=== PATIENT | male | born 1970 | race African-American/Black ===

== ENCOUNTER 2019-10-17 07:00 | Inpatient (IN) | payer SELFPAY ==
[2019-10-17 07:51] LABS: ABSOLUTE EOSINOPHILS # (AUTO) 0.4 10^3/uL (0.0-0.6); ABSOLUTE MONOCYTES (AUTO) 0.7 10^3/uL (0.1-1.4); ABSOLUTE NEUT (AUTO) 2.9 10^3/uL (1.7-8.2); BASOPHILS % (AUTO) 0.7 % (0-2); HEMATOCRIT 39.9 % (37.9-51.0); HEMOGLOBIN 13.2 g/dL (13.5-17.0); LYMPHOCYTES % (AUTO) 42.4 % (13-45); MEAN CORPUSCULAR HEMOGLOBIN 28.6 pg (27.0-33.4); MEAN CORPUSCULAR HGB CONC 33.1 g/dL (32.0-36.0); MEAN CORPUSCULAR VOLUME 86 fl (80-97); MONOCYTES % (AUTO) 9.6 % (3-13); PLATELET COUNT 219 10^3/uL (150-450); RED BLOOD COUNT 4.62 10^6/uL (4.35-5.55); SEGMENTED NEUTROPHILS % (AUTO) 41.3 % (42-78); TOTAL CELLS COUNTED % (AUTO) 100 %; WHITE BLOOD COUNT 7.1 10^3/uL (4.0-10.5)
[2019-10-17] MEDS ORDERED: DILTIAZEM HCL INJ 25 MG/5 ML VIAL IV ONE (07:52)
[2019-10-17 07:55] LABS: ALBUMIN 3.8 g/dL (3.5-5.0); ALKALINE PHOSPHATASE 72 U/L (38-126); ANION GAP 9 (5-19); ASPARTATE AMINO TRANSFERASE 51 U/L (17-59); BILIRUBIN,DIRECT 0.4 mg/dL (0.0-0.4); BILIRUBIN,TOTAL 0.6 mg/dL (0.2-1.3); BLOOD UREA NITROGEN 13 mg/dL (7-20); CALCIUM 8.5 mg/dL (8.4-10.2); CARBON DIOXIDE 26 mmol/L (22-30); CHLORIDE 104 mmol/L (98-107); CREATINE KINASE 411 U/L (55-170); GLUCOSE 112 mg/dL (75-110); TOTAL PROTEIN 7.3 g/dL (6.3-8.2)
[2019-10-17] MEDS ORDERED: DILTIAZEM HCL/D5W 125 MG/125 ML RTUINJ IV PRN (07:56)
[2019-10-17 08:06] LABS: CREATINE KINASE MB 2.06 ng/mL (<4.55); TROPONIN I < 0.012 ng/mL
--- NOTE | 2019-10-17 08:23 | RADIOLOGY REPORT (SQ) ---
EXAM DESCRIPTION: CHEST SINGLE VIEW COMPLETED DATE/TIME: 10/17/2019 7:45 am REASON FOR STUDY: chest pain COMPARISON: None. EXAM PARAMETERS: NUMBER OF VIEWS: One view. TECHNIQUE: Single frontal radiographic view of the chest acquired. RADIATION DOSE: NA LIMITATIONS: None. FINDINGS: LUNGS AND PLEURA: Minimal parenchymal opacity at the right base. Left lung is clear. MEDIASTINUM AND HILAR STRUCTURES: No masses. Contour normal. HEART AND VASCULAR STRUCTURES: Heart enlarged. Mild vascular congestion. BONES: No acute findings. HARDWARE: None in the chest. OTHER: No other significant finding. IMPRESSION: Mild vascular congestion. Possible superimposed right lower lobe pneumonia. TECHNICAL DOCUMENTATION: JOB ID: [id number] [employer]- All Rights Reserved Reading location - IP/workstation name: [email or web address]
[2019-10-17] MEDS ORDERED: FUROSEMIDE INJ/PF 40 MG/4 ML SDV IV ONE (09:18)
[2019-10-17] MEDS ORDERED: MORPHINE SULFATE 10 MG/ML INJ IV ONE (09:19)
[2019-10-17] MEDS ORDERED: NITROGLYCERIN 2% OINTMENT 1 GM PACKET TP ONE (09:20)
[2019-10-17 09:24] LABS: INTERNATIONAL RATION (INR) 1.13; PROTHROMBIN TIME 14.5 SEC (11.4-15.4)
[2019-10-17 09:25] LABS: PARTIAL THROMBOPLASTIN TIME 29.8 SEC (23.5-35.8)
[2019-10-17 09:27] LABS: APPEARANCE,URINE CLEAR; BILIRUBIN,URINE NEGATIVE (NEGATIVE); COLOR,URINE YELLOW; GLUCOSE, URINE NEGATIVE (NEGATIVE); KETONES,URINE NEGATIVE (NEGATIVE); LEUKOCYTE ESTERASE,URINE NEGATIVE (NEGATIVE); NITRITE,URINE NEGATIVE (NEGATIVE); PROTEIN,URINE >=500 mg/dL (NEGATIVE)
[2019-10-17 09:40] LABS: URINE AMPHETAMINES SCREEN NEGATIVE; URINE BARBITURATES SCREEN NEGATIVE; URINE BENZODIAZEPINES SCREEN NEGATIVE; URINE COCAINE SCREEN NEGATIVE; URINE MARIJUANA (THC) SCREEN NEGATIVE; URINE METHADONE SCREEN NEGATIVE; URINE PHENCYCLIDINE SCREEN NEGATIVE
--- NOTE | 2019-10-17 10:53 | ER Document Report ---
Entered by JEFF DUBOSE SCRIBE 10/17/19 0750 Acting as scribe for:HAKAN CAMPBELL MD ED Cardiac - General Chief Complaint: Chest Pain Stated Complaint: CHEST PAIN Time Seen by Provider: 10/17/19 07:40 Information source: Patient Notes: This 49 year old male patient presents to the emergency department today with palpitations. Patient states he has had pressure and pain in his chest since the previous night and cannot sleep supine due to shortness of breath. Patient states he felt hot this morning, with a swollen abdomen and feet. Patient states he has had shortness of breath and a cough with white frothy sputum. Of note, patient mentions non-compliance with his medications stating that he "didn't like the way it made him feel". - Related Data Allergies/Adverse Reactions: No Known Allergies Allergy (Verified 10/17/19 11:27) Past Medical History - General Information source: Patient - Social History Smoking Status: Current Every Day Smoker Cigarette use (# per day): Yes Frequency of alcohol use: None Drug Abuse: None Lives with: Family Family History: Reviewed & Not Pertinent Patient has suicidal ideation: No Patient has homicidal ideation: No - Past Medical History Cardiac Medical History: Reports: Hx Hypertension Review of Systems - Review of Systems Constitutional: See HPI, Fever - This morning. EENT: No symptoms reported Cardiovascular: See HPI, Chest pain, Other - Irregularly irregular heart rate. Respiratory: See HPI, Cough, Short of breath, Sputum Gastrointestinal: See HPI Genitourinary: No symptoms reported Male Genitourinary: No symptoms reported Musculoskeletal: See HPI, Other - Feet swelling. Skin: No symptoms reported Hematologic/Lymphatic: No symptoms reported Neurological/Psychological: No symptoms reported -: Yes All other systems reviewed and negative Physical Exam - Vital signs Vitals: Resp Pulse Ox 27 H 90 L 10/17/19 07:02 10/17/19 07:02 - General General appearance: Appears well, Alert In distress: None - HEENT Head: Normocephalic, Atraumatic Eyes: Normal Pupils: PERRL - Respiratory Respiratory status: Other - Shortness of breath. Chest status: Other - Minimal chest pain. Breath sounds: Rales - Left base. - Cardiovascular Rhythm: Irregularly irregular - A-fib with rvr, Tachycardia - Abdominal Distension: Distended Bowel sounds: Normal Tenderness: Nontender Organomegaly: No organomegaly - Extremities General upper extremity: Normal inspection. No: Edema General lower extremity: Edema - Edema 2+ bilaterally - Neurological Neuro grossly intact: Yes Cognition: Normal Orientation: AAOx4 Speech: Normal - Psychological Associated symptoms: Normal affect, Normal mood - Skin Skin Temperature: Warm Skin Moisture: Dry Skin Color: Normal Course - Re-evaluation Re-evalutation: 10/17/19 10:47 Patient is sitting up upright in room resting comfortably heart rate is now variable between 81-1 03 95% sat on nasal cannula O2 with a blood pressure 132/88 patient is speaking with a stronger voice without any air hunger at this time. Denies any chest pain at this time. - Vital Signs Vital signs: Temp Pulse Resp BP Pulse Ox 97.4 F 76 18 150/108 H 99 10/17/19 11:21 10/17/19 14:04 10/17/19 14:04 10/17/19 13:17 10/17/19 14:10 - Laboratory Result Diagrams: 10/17/19 07:07 10/17/19 07:07 Laboratory results interpreted by me: 10/17/19 10/17/19 10/17/19 07:07 07:07 07:07 Hgb 13.2 L RDW 15.0 H Seg Neutrophils % 41.3 L Glucose 112 H Creatine Kinase 411 H NT-Pro-B Natriuret Pep 1230 H Urine Protein Urine Urobilinogen Urine Ascorbic Acid 10/17/19 09:03 Hgb RDW Seg Neutrophils % Glucose Creatine Kinase NT-Pro-B Natriuret Pep Urine Protein >=500 H Urine Urobilinogen 2.0 H Urine Ascorbic Acid 20 H - Diagnostic Test Radiology reviewed: Image reviewed, Reports reviewed Radiology results interpreted by me: 10/17/19 10:50 Radiology interpretation shows cardiomegaly congestive heart failure state and questionable infiltrate in the right base. - EKG Interpretation by Me Additional EKG results interpreted by me: 10/17/19 10:49 EKG done at 7:39 AM shows atrial fibrillation with a variable rate 78-1 33 rapid ventricular response. Multiform ventricular PVCs borderline T wave abnormalities in the inferior leads no other acute ST-T wave changes. 10/17/19 11:22 Second EKG done at 43 again atrial fibrillation with rapid ventricular response ventricular rate between 62 and 104 multiple PVCs supraventricular and ventricular premature complexes. Borderline T wave abnormalities in the inferior leads no other acute ST-T wave changes. Critical Care Note - Critical Care Note Total time excluding time spent on procedures (mins): 49 Discharge - Discharge Clinical Impression: Atrial fibrillation with rapid ventricular response, Accelerated hypertension, Congestive heart failure due to hypertension Chest pain Qualifiers: Chest pain type: chest pain on breathing Qualified Code(s): R07.1 - Chest pain on breathing; R07.81 - Pleurodynia Condition: Fair Disposition: ADMITTED INPATIENT Admitting Provider: Kayley (Hospitalist) Unit Admitted: IMCU I personally performed the services described in the documentation, reviewed and edited the documentation which was dictated to the scribe in my presence, and it accurately records my words and actions.
[2019-10-17] MEDS ORDERED: PROMETHAZINE HCL INJ 25 MG/1 ML VIAL IV PRN (11:15)
[2019-10-17] MEDS ORDERED: MAG HYDROX/AL HYDROX/SIMETH SUSP 30 ML UDCUP PO PRN (11:15)
[2019-10-17] MEDS ORDERED: ONDANSETRON HCL INJ/PF 4 MG/2 ML SDV IV PRN (11:15)
[2019-10-17] MEDS ORDERED: ACETAMINOPHEN 325 MG TABLET PO PRN (11:15)
[2019-10-17] MEDS ORDERED: HYDRALAZINE HCL INJ/PF 20 MG/1 ML SDV IV PRN (12:32)
[2019-10-17] MEDS: LOSARTAN POTASSIUM 50 MG TABLET PO SCH (12:55)
--- NOTE | 2019-10-17 13:05 | PDOC H&P ---
History of Present Illness Admission Date/PCP: 10/17/19 11:35 Patient complains of: Shortness of breath History of Present Illness: EB ZAMUDIO is a 49 year old male with a past medical history of CHF, hypertension, tobacco dependence with continuous use, and obesity with medication noncompliance who presented to the emergency department today with a complaint of shortness of breath and increased leg edema. Patient reports that it has been several years since he is seen a physician but does recall diagnosis of heart failure. He cannot recall the last time he has had an echocardiogram for what his LVEF is. Evaluation in emergency department revealed Hypertension, unremarkable CBC, coags, chemistry with 2- troponins but a proBNP of 1200, normal TSH, urinalysis positive for protein, negative UDS and serum alcohol. EKG revealed atrial fibrillation with RVR; heart rate in the 140s. Chest x-ray started mild pulmonary edema with a possible right lower lobe pneumonia. Patient was provided IV furosemide and started on a diltiazem drip with subsequent rate control and underlying a flutter. He is referred to the hospitalist service for admission and management of the above-stated complaints and findings. Past Medical History Cardiac Medical History: Reports: Congestive Heart Failure, Hypertension Pulmonary Medical History: Reports: None EENT Medical History: Reports: None Neurological Medical History: Reports: None Endocrine Medical History: Reports: Obesity Renal/ Medical History: Reports: None Malignancy Medical History: Reports: None GI Medical History: Reports: None Musculoskeltal Medical History: Reports: None Skin Medical History: Reports: None Psychiatric Medical History: Reports: Tobacco Dependency Traumatic Medical History: Reports: None Hematology: Reports: None Infectious Medical History: Reports: None Past Surgical History Past Surgical History: Reports: Orthopedic Surgery - Right hand Social History Information Source: Patient Lives with: Family Smoking Status: Current Every Day Smoker Cigarettes Packs Per Day: 1 Frequency of Alcohol Use: Social Hx Recreational Drug Use: No Hx Prescription Drug Abuse: No - Advance Directive Resuscitation Status: Full Code Family History Family History: CAD, Hyperlipidemia, Hypertension Parental Family History Reviewed: Yes Children Family History Reviewed: Yes Sibling(s) Family History Reviewed.: Yes Medication/Allergy Allergies/Adverse Reactions: No Known Allergies Allergy (Verified 10/17/19 11:27) Review of Systems Constitutional: ABSENT: chills, fever(s), headache(s), weight gain, weight loss Eyes: ABSENT: visual disturbances Ears: ABSENT: hearing changes Cardiovascular: PRESENT: edema, orthropnea. ABSENT: chest pain, dyspnea on exertion, palpitations Respiratory: PRESENT: dyspnea. ABSENT: cough, hemoptysis Gastrointestinal: ABSENT: abdominal pain, constipation, diarrhea, hematemesis, hematochezia, nausea, vomiting Genitourinary: ABSENT: dysuria, hematuria Musculoskeletal: ABSENT: joint swelling Integumentary: ABSENT: rash, wounds Neurological: ABSENT: abnormal gait, abnormal speech, confusion, dizziness, focal weakness, syncope Psychiatric: ABSENT: anxiety, depression, homidical ideation, suicidal ideation Endocrine: ABSENT: cold intolerance, heat intolerance, polydipsia, polyuria Hematologic/Lymphatic: ABSENT: easy bleeding, easy bruising Physical Exam Vital Signs: Temp Pulse Resp BP Pulse Ox 97.4 F 17 150/104 H 98 10/17/19 11:21 10/17/19 11:31 10/17/19 12:17 10/17/19 12:17 Intake & Output 10/16/19 10/17/19 10/18/19 06:59 06:59 06:59 Intake Total 12 Output Total 520 Balance -508 Weight 104.326 kg General appearance: PRESENT: no acute distress, cooperative, obese, well- developed, well-nourished Head exam: PRESENT: atraumatic, normocephalic Eye exam: PRESENT: conjunctiva pink, EOMI, PERRLA. ABSENT: scleral icterus Ear exam: PRESENT: normal external ear exam Mouth exam: PRESENT: moist, tongue midline Neck exam: ABSENT: carotid bruit, JVD, lymphadenopathy, thyromegaly Respiratory exam: PRESENT: clear to auscultation conchita, symmetrical, unlabored. ABSENT: rales, rhonchi, wheezes Cardiovascular exam: PRESENT: irregular rhythm, +S1, +S2. ABSENT: diastolic murmur, rubs, systolic murmur Pulses: PRESENT: normal dorsalis pedis pul Vascular exam: PRESENT: normal capillary refill Rectal exam: PRESENT: deferred Extremities exam: PRESENT: full ROM, +1 edema - BLE. ABSENT: calf tenderness, clubbing, pedal edema Neurological exam: PRESENT: alert, awake, oriented to person, oriented to place, oriented to time, oriented to situation, CN II-XII grossly intact. ABSENT: motor sensory deficit Psychiatric exam: PRESENT: appropriate affect, normal mood. ABSENT: homicidal ideation, suicidal ideation Skin exam: PRESENT: dry, intact, warm. ABSENT: cyanosis, rash Results Laboratory Results: 10/17/19 07:07 10/17/19 07:07 10/17/19 10/17/19 10/17/19 07:07 07:07 07:07 WBC 7.1 RBC 4.62 Hgb 13.2 L Hct 39.9 MCV 86 MCH 28.6 MCHC 33.1 RDW 15.0 H Plt Count 219 Seg Neutrophils % 41.3 L Sodium 139.1 Potassium 4.0 Chloride 104 Carbon Dioxide 26 Anion Gap 9 BUN 13 Creatinine 0.77 Est GFR ( Amer) > 60 Glucose 112 H Calcium 8.5 Total Bilirubin 0.6 AST 51 Alkaline Phosphatase 72 Total Protein 7.3 Albumin 3.8 TSH 1.74 Urine Color Urine Appearance Urine pH Ur Specific [place] Urine Protein Urine Glucose (UA) Urine Ketones Urine Blood Urine Nitrite Ur Leukocyte Esterase Urine WBC (Auto) Urine RBC (Auto) 10/17/19 09:03 WBC RBC Hgb Hct MCV MCH MCHC RDW Plt Count Seg Neutrophils % Sodium Potassium Chloride Carbon Dioxide Anion Gap BUN Creatinine Est GFR ( Amer) Glucose Calcium Total Bilirubin AST Alkaline Phosphatase Total Protein Albumin TSH Urine Color YELLOW Urine Appearance CLEAR Urine pH 5.0 Ur Specific [place] 1.020 Urine Protein >=500 H Urine Glucose (UA) NEGATIVE Urine Ketones NEGATIVE Urine Blood NEGATIVE Urine Nitrite NEGATIVE Ur Leukocyte Esterase NEGATIVE Urine WBC (Auto) 2 Urine RBC (Auto) 2 10/17/19 10/17/19 10/17/19 07:07 07:07 07:07 Creatine Kinase 411 H CK-MB (CK-2) 2.06 Troponin I < 0.012 NT-Pro-B Natriuret Pep 1230 H 10/17/19 10:34 Creatine Kinase CK-MB (CK-2) Troponin I < 0.012 NT-Pro-B Natriuret Pep Impressions: Chest X-Ray 10/17/19 07:34 IMPRESSION: Mild vascular congestion. Possible superimposed right lower lobe pneumonia. Assessment and Plan - Diagnosis (1) Atrial fibrillation with rapid ventricular response Is this a current diagnosis for this admission?: Yes Plan: TSH nml The patient is noted to IMCU on continuous cardiac telemetry. He is placed on a diltiazem drip. We will start daily aspirin therapy. [id number] VASc Score of 2; will not take chronic anticoagulation at this time. Cardiac diet. (2) CHF (congestive heart failure) Qualifiers: Heart failure chronicity: acute on chronic Is this a current diagnosis for this admission?: Yes Plan: Patient reports 5-year history of CHF; does admit to medication and dietary noncompliance. Recall the last time he had an echocardiogram. Chest x-ray reveals pulmonary edema. proBNP elevated 1200. Patient noted to have dependent edema. We will obtain echocardiogram. Continue diuresis with furosemide. Obtain appropriate rate control. Start daily aspirin and statin therapy. Cardiac diet. Daily weights (3) Hypertension Is this a current diagnosis for this admission?: Yes Plan: Currently on diltiazem drip for atrial fibrillation. Started losartan 50 mg daily. IV Hydralazine as needed for blood pressure control. Consider beta-deep due to patient's CHF. Cardiac diet. (4) Tobacco dependence Is this a current diagnosis for this admission?: Yes Plan: Smoking cessation encouraged. Nicotine replacement therapies provided. (5) Obesity (BMI 30-39.9) Is this a current diagnosis for this admission?: Yes Plan: Lifestyle and dietary modification encouraged. BMI 35.0 Cardiac diet. - Time Time Spent with patient: 25-34 minutes Medications reviewed and adjusted accordingly: Yes Anticipated discharge: Home Within: within 48 hours
[2019-10-17] MEDS: DILTIAZEM HCL/D5W 125 MG/125 ML RTUINJ IV PRN ×2 (13:58→17:49)
[2019-10-17] MEDS: NICOTINE 21 MG/24 HR PATCH.TD24 TD SCH (13:59)
[2019-10-17] MEDS: LEVALBUTEROL HCL NEB 1.25 MG/3 ML AMPUL NEB PRN (14:04)
[2019-10-17] MEDS: HEPARIN SOD (PORCINE) 5,000 UNIT/ML 1 ML VIAL SUBCUT SCH ×2 (16:01→22:08)
[2019-10-17] MEDS: FUROSEMIDE 20 MG TABLET PO SCH (17:49)
[2019-10-17] MEDS: FAMOTIDINE 20 MG TABLET PO SCH (22:08)
--- NOTE | 2019-10-17 23:44 | EKG REPORT ---
SEVERITY:- ABNORMAL ECG - ATRIAL FIBRILLATION, V-RATE 78-133 MULTIFORM VENTRICULAR PREMATURE COMPLEXES BORDERLINE T ABNORMALITIES, INFERIOR LEADS : Confirmed by: Adam Rodriguez 17-Oct-2019 23:44:20
--- NOTE | 2019-10-17 23:44 | EKG REPORT ---
SEVERITY:- ABNORMAL ECG - ATRIAL FIBRILLATION, V-RATE 62-104 BORDERLINE T ABNORMALITIES, INFERIOR LEADS : Confirmed by: Adam Rodriguez 17-Oct-2019 23:44:12
[2019-10-18] MEDS: HEPARIN SOD (PORCINE) 5,000 UNIT/ML 1 ML VIAL SUBCUT SCH ×3 (05:05→21:18)
[2019-10-18] MEDS: DILTIAZEM HCL/D5W 125 MG/125 ML RTUINJ IV PRN (05:30)
[2019-10-18 05:57] LABS: HEMOGLOBIN 12.8 g/dL (13.5-17.0); MEAN CORPUSCULAR HEMOGLOBIN 28.6 pg (27.0-33.4); MEAN CORPUSCULAR HGB CONC 32.9 g/dL (32.0-36.0); MEAN CORPUSCULAR VOLUME 87 fl (80-97); PLATELET COUNT 223 10^3/uL (150-450); RED BLOOD COUNT 4.49 10^6/uL (4.35-5.55); RED CELL DISTRIBUTION WIDTH 14.6 % (11.5-14.0); WHITE BLOOD COUNT 6.2 10^3/uL (4.0-10.5)
[2019-10-18 06:19] LABS: ANION GAP 5 (5-19); BLOOD UREA NITROGEN 11 mg/dL (7-20); CALCIUM 8.6 mg/dL (8.4-10.2); CARBON DIOXIDE 29 mmol/L (22-30); CHLORIDE 105 mmol/L (98-107); CHOLESTEROL 131.23 mg/dL (0-200); GLUCOSE 109 mg/dL (75-110); POTASSIUM 4.5 mmol/L (3.6-5.0); TRIGLYCERIDES 107 mg/dL (<150)
[2019-10-18 06:29] LABS: DIRECT LDL 99 mg/dL (<100)
[2019-10-18] MEDS: METOPROLOL SUCCINATE 25 MG TAB.SR.24H PO SCH ×2 (10:45→21:18)
[2019-10-18] MEDS: FAMOTIDINE 20 MG TABLET PO SCH ×2 (10:45→21:16)
[2019-10-18] MEDS: DOCUSATE SODIUM 100 MG CAPSULE PO SCH (10:45)
[2019-10-18] MEDS: NICOTINE 21 MG/24 HR PATCH.TD24 TD SCH (10:45)
[2019-10-18] MEDS: FUROSEMIDE 20 MG TABLET PO SCH ×2 (10:45→17:39)
[2019-10-18] MEDS: LOSARTAN POTASSIUM 50 MG TABLET PO SCH (10:45)
--- NOTE | 2019-10-18 11:54 | PDOC PROGRESS REPORT ---
Subjective Progress Note for:: 10/18/19 Subjective:: EB ZAMUDIO is a 49 year old male with a past medical history of CHF, hypertension, tobacco dependence with continuous use, and obesity with medication noncompliance who was admitted to 10/17/19 with atrial fibrillation RVR and CHF exacerbation. Patient was seen on morning rounds. He was found sitting up to the edge of the bed, comfortably, on room air. He reports that he is feeling much better today. Decreased dyspnea, palpitations, and pedal edema. He expresses appreciation with his care so far and asks to speak with a social psychologist to discuss how to go about arranging for an state insurance. He also asks me to provide assistance with obtaining a primary care provider at discharge. Unprompted, he also asks for HIV screening. He denies prior herald symptoms, states that he, "just want to check my health." He denies fever, chills, chest pain, dyspnea, orthopnea, abdominal pain, nausea vomiting or diarrhea. Has no other questions or concerns at this time. No concerns per nursing. Reason For Visit: AFIB RVR Physical Exam Vital Signs: Temp Pulse Resp BP Pulse Ox 97.6 F 91 16 126/86 H 95 10/18/19 03:31 10/18/19 11:00 10/18/19 08:13 10/18/19 11:00 10/18/19 08:13 Intake & Output 10/17/19 10/18/19 10/19/19 06:59 06:59 06:59 Intake Total 547 350 Output Total 2195 Balance -1648 350 Weight 105.2 kg General appearance: PRESENT: no acute distress, cooperative, obese, well-developed, well-nourished Head exam: PRESENT: atraumatic, normocephalic Eye exam: PRESENT: conjunctiva pink, EOMI, PERRLA. ABSENT: scleral icterus Ear exam: PRESENT: normal external ear exam Mouth exam: PRESENT: moist, tongue midline Neck exam: ABSENT: carotid bruit, JVD, lymphadenopathy, thyromegaly Respiratory exam: PRESENT: clear to auscultation conchita, symmetrical, unlabored. ABSENT: rales, rhonchi, wheezes Cardiovascular exam: PRESENT: irregular rhythm, RRR, +S1, +S2, tachycardia. ABSENT: diastolic murmur, rubs, systolic murmur Pulses: PRESENT: normal dorsalis pedis pul Vascular exam: PRESENT: normal capillary refill GI/Abdominal exam: PRESENT: normal bowel sounds, soft. ABSENT: distended, guarding, mass, organolmegaly, rebound, tenderness Rectal exam: PRESENT: deferred Extremities exam: PRESENT: full ROM, pedal edema - Trace bilaterally. ABSENT: calf tenderness, clubbing Musculoskeletal exam: PRESENT: ambulatory Neurological exam: PRESENT: alert, awake, oriented to person, oriented to place, oriented to time, oriented to situation, CN II-XII grossly intact. ABSENT: motor sensory deficit Psychiatric exam: PRESENT: appropriate affect, normal mood. ABSENT: homicidal ideation, suicidal ideation Skin exam: PRESENT: dry, intact, warm. ABSENT: cyanosis, rash Results Laboratory Results: 10/18/19 05:17 10/18/19 05:17 10/17/19 10/18/19 10/18/19 07:07 05:17 05:17 WBC 6.2 RBC 4.49 Hgb 12.8 L Hct 39.0 MCV 87 MCH 28.6 MCHC 32.9 RDW 14.6 H Plt Count 223 Sodium 138.9 Potassium 4.5 Chloride 105 Carbon Dioxide 29 Anion Gap 5 BUN 11 Creatinine 0.71 Est GFR ( Amer) > 60 Glucose 109 Calcium 8.6 Triglycerides 107 Cholesterol 131.23 LDL Cholesterol Direct 99 VLDL Cholesterol 21.0 HDL Cholesterol 32 L TSH 1.74 10/17/19 10/17/19 10/17/19 07:07 07:07 07:07 Creatine Kinase 411 H CK-MB (CK-2) 2.06 Troponin I < 0.012 NT-Pro-B Natriuret Pep 1230 H 10/17/19 10:34 Creatine Kinase CK-MB (CK-2) Troponin I < 0.012 NT-Pro-B Natriuret Pep Impressions: Chest X-Ray 10/17/19 07:34 IMPRESSION: Mild vascular congestion. Possible superimposed right lower lobe pneumonia. Assessment and Plan - Diagnosis (1) Atrial fibrillation with rapid ventricular response Is this a current diagnosis for this admission?: Yes Plan: TSH nml The patient is noted to IMCU on continuous cardiac telemetry. He is placed on a diltiazem drip; will transition to oral diltiazem today. Start low-dose Toprol-XL twice daily. We will start daily aspirin therapy. [id number] VASc Score of 2; will not recommend chronic anticoagulation at this time. Cardiac diet. (2) CHF (congestive heart failure) Qualifiers: Heart failure chronicity: acute on chronic Is this a current diagnosis for this admission?: Yes Plan: Improved; patient reports dyspnea and orthopnea are resolved. Pedal edema is decreased. Patient reports 5-year history of CHF; does admit to medication and dietary noncompliance. He does not recall the last time he had an echocardiogram. Chest x-ray reveals pulmonary edema. proBNP elevated 1200. We will obtain echocardiogram. Continue diuresis with furosemide. Obtain appropriate rate control. Start daily aspirin and statin therapy. Antihypertensives as above. Cardiac diet. Daily weights (3) Hypertension Is this a current diagnosis for this admission?: Yes Plan: Transition to p.o. diltiazem today. Start low-dose Toprol-XL. Continue losartan 50 mg daily. IV Hydralazine as needed for blood pressure control. Cardiac diet. (4) Tobacco dependence Is this a current diagnosis for this admission?: Yes Plan: Smoking cessation encouraged. Nicotine replacement therapies provided. (5) Obesity (BMI 30-39.9) Is this a current diagnosis for this admission?: Yes Plan: Lifestyle and dietary modification encouraged. BMI 35.0 Cardiac diet. - Time Time Spent with patient: 25-34 minutes Medications reviewed and adjusted accordingly: Yes Anticipated discharge: Home Within: within 24 hours
[2019-10-18] MEDS: DILTIAZEM HCL 60 MG TABLET PO SCH ×2 (11:55→17:39)
[2019-10-19] MEDS: DILTIAZEM HCL 60 MG TABLET PO SCH ×3 (04:55→12:47)
[2019-10-19] MEDS: HEPARIN SOD (PORCINE) 5,000 UNIT/ML 1 ML VIAL SUBCUT SCH ×2 (05:17→13:38)
[2019-10-19] MEDS: LEVALBUTEROL HCL NEB 1.25 MG/3 ML AMPUL NEB PRN ×2 (06:52→11:08)
[2019-10-19] MEDS: LOSARTAN POTASSIUM 50 MG TABLET PO SCH (09:50)
[2019-10-19] MEDS: METOPROLOL SUCCINATE 25 MG TAB.SR.24H PO SCH (09:50)
[2019-10-19] MEDS: FUROSEMIDE 20 MG TABLET PO SCH (09:50)
[2019-10-19] MEDS: DOCUSATE SODIUM 100 MG CAPSULE PO SCH (09:50)
[2019-10-19] MEDS: FAMOTIDINE 20 MG TABLET PO SCH (09:51)
[2019-10-19] MEDS: NICOTINE 21 MG/24 HR PATCH.TD24 TD SCH (09:51)
--- NOTE | 2019-10-19 15:58 | PDOC DISCHARGE SUMMARY ---
Impression - Admit/DC Date/PCP Admission Date/Primary Care Provider: 10/17/19 11:35 Discharge Date: 10/19/19 - Discharge Diagnosis (1) Atrial fibrillation with rapid ventricular response Is this a current diagnosis for this admission?: Yes (2) CHF (congestive heart failure) Is this a current diagnosis for this admission?: Yes (3) Hypertension Is this a current diagnosis for this admission?: Yes (4) Tobacco dependence Is this a current diagnosis for this admission?: Yes (5) Obesity (BMI 30-39.9) Is this a current diagnosis for this admission?: Yes - Additional Information Resuscitation Status: Full Code Discharge Diet: Cardiac, Other (Comments) - Fluid restrict to 2 L/daily Discharge Activity: Activity As Tolerated, Balance Activity w/Rest, Weigh Daily [facility] [NO LOCAL MD] - 10/28/19 3:30 pm (Follow up within 1 week to establish care. Please bring in proof of resident a bill, cdl truck driver aminah also ) Prescriptions: Diltiazem HCl [Cardizem 60 mg Tablet] 60 mg PO Q6 #120 tablet Losartan Potassium [Cozaar 50 mg Tablet] 50 mg PO DAILY #30 tablet Furosemide [Lasix 20 mg Tablet] 40 mg PO DAILY #60 tablet Nicotine [Nicoderm 21 mg/24 Hr Transderm Patch] 1 each TD DAILY #30 patch.td24 Metoprolol Succinate [Toprol Xl 25 mg Tab.sr] 25 mg PO Q12 #60 tab.sr.24h Home Medications: Acetaminophen [Tylenol 325 mg Tablet] 650 mg PO Q4HP PRN #0 tablet 10/19/19 Diltiazem HCl [Cardizem 60 mg Tablet] 60 mg PO Q6 #120 tablet 10/19/19 Furosemide [Lasix 20 mg Tablet] 40 mg PO DAILY #60 tablet 10/19/19 Losartan Potassium [Cozaar 50 mg Tablet] 50 mg PO DAILY #30 tablet 10/19/19 Metoprolol Succinate [Toprol Xl 25 mg Tab.sr] 25 mg PO Q12 #60 tab.sr.24h 10/19/19 Nicotine [Nicoderm 21 mg/24 Hr Transderm Patch] 1 each TD DAILY #30 patch.td24 10/19/19 History of Present Illiness History of Present Illness: EB ZAMUDIO is a 49 year old male with a past medical history of CHF, hypertension, tobacco dependence with continuous use, and obesity with medication noncompliance who presented to the emergency department today with a complaint of shortness of breath and increased leg edema. Patient reports that it has been several years since he is seen a physician but does recall diagnosis of heart failure. He cannot recall the last time he has had an echocardiogram for what his LVEF is. Evaluation in emergency department revealed Hypertension, unremarkable CBC, coags, chemistry with 2- troponins but a proBNP of 1200, normal TSH, urinalysis positive for protein, negative UDS and serum alcohol. EKG revealed atrial fibrillation with RVR; heart rate in the 140s. Chest x-ray started mild pu lmonary edema with a possible right lower lobe pneumonia. Patient was provided IV furosemide and started on a diltiazem drip with subsequent rate control and underlying a flutter. He is referred to the hospitalist service for admission and management of the above-stated complaints and findings. Hospital Course Hospital Course: (1) Atrial fibrillation with rapid ventricular response TSH nml The patient was admitted to [facility] on continuous cardiac telemetry. He was placed on a diltiazem drip; was transitioned to oral diltiazem once rate control was obtained. Continues on Toprol-XL twice daily. Continue daily aspirin therapy. [id number] VASc Score of 2; will not recommend chronic anticoagulation at this time. Cardiac diet. (2) CHF (congestive heart failure) Acute exacerbation has resolved. Chest x-ray reveals pulmonary edema. proBNP elevated 1200. Echocardiogram has been completed; at time of dictation, formal report is still pending. He is discharged on diltiazem, Toprol-XL, losartan, furosemide, and aspirin therapy. He is advised to follow a cardiac diet and to weigh daily. (3) Hypertension Well controlled on the above mentioned antihypertensives. (4) Tobacco dependence Smoking cessation encouraged. (5) Obesity (BMI 30-39.9) Lifestyle and dietary modification encouraged. BMI 34.7 Physical Exam Vital Signs: Temp Pulse Resp BP Pulse Ox 97.5 F 77 17 132/71 H 98 10/19/19 12:18 10/19/19 12:18 10/19/19 12:18 10/19/19 12:18 10/19/19 12:18 Intake & Output 10/18/19 10/19/19 10/20/19 06:59 06:59 06:59 Intake Total 547 1397 600 Output Total 0190 875 Balance -1648 522 600 Weight 105.2 kg 103.4 kg General appearance: PRESENT: no acute distress, cooperative, obese, well- developed, well-nourished Head exam: PRESENT: atraumatic, normocephalic Eye exam: PRESENT: conjunctiva pink, EOMI, PERRLA. ABSENT: scleral icterus Ear exam: PRESENT: normal external ear exam Mouth exam: PRESENT: moist, tongue midline Neck exam: ABSENT: carotid bruit, JVD, lymphadenopathy, thyromegaly Respiratory exam: PRESENT: clear to auscultation conchita, symmetrical, unlabored. ABSENT: rales, rhonchi, wheezes Cardiovascular exam: PRESENT: RRR, +S1, +S2. ABSENT: diastolic murmur, rubs, systolic murmur Pulses: PRESENT: normal dorsalis pedis pul Vascular exam: PRESENT: normal capillary refill GI/Abdominal exam: PRESENT: normal bowel sounds, soft. ABSENT: distended, guarding, mass, organolmegaly, rebound, tenderness Rectal exam: PRESENT: deferred Extremities exam: PRESENT: full ROM, pedal edema. ABSENT: calf tenderness, clubbing Musculoskeletal exam: PRESENT: ambulatory Neurological exam: PRESENT: alert, awake, oriented to person, oriented to place, oriented to time, oriented to situation, CN II-XII grossly intact. ABSENT: motor sensory deficit Psychiatric exam: PRESENT: appropriate affect, normal mood. ABSENT: homicidal ideation, suicidal ideation Skin exam: PRESENT: dry, intact, warm. ABSENT: cyanosis, rash Results Laboratory Results: WBC 6.2 10^3/uL (4.0-10.5) 10/18/19 05:17 RBC 4.49 10^6/uL (4.35-5.55) 10/18/19 05:17 Hgb 12.8 g/dL (13.5-17.0) L 10/18/19 05:17 Hct 39.0 % (37.9-51.0) 10/18/19 05:17 MCV 87 fl (80-97) 10/18/19 05:17 MCH 28.6 pg (27.0-33.4) 10/18/19 05:17 MCHC 32.9 g/dL (32.0-36.0) 10/18/19 05:17 RDW 14.6 % (11.5-14.0) H 10/18/19 05:17 Plt Count 223 10^3/uL (150-450) 10/18/19 05:17 Lymph % (Auto) 42.4 % (13-45) 10/17/19 07:07 [place] % (Auto) 9.6 % (3-13) 10/17/19 07:07 Eos % (Auto) 6.0 % (0-6) 10/17/19 07:07 Baso % (Auto) 0.7 % (0-2) 10/17/19 07:07 Absolute Neuts (auto) 2.9 10^3/uL (1.7-8.2) 10/17/19 07:07 Absolute Lymphs (auto) 3.0 10^3/uL (0.5-4.7) 10/17/19 07:07 Absolute Monos (auto) 0.7 10^3/uL (0.1-1.4) 10/17/19 07:07 Absolute Eos (auto) 0.4 10^3/uL (0.0-0.6) 10/17/19 07:07 Absolute Basos (auto) 0.0 10^3/uL (0.0-0.2) 10/17/19 07:07 Seg Neutrophils % 41.3 % (42-78) L 10/17/19 07:07 PT 14.5 SEC (11.4-15.4) 10/17/19 07:07 INR 1.13 10/17/19 07:07 APTT 29.8 SEC (23.5-35.8) 10/17/19 07:07 Sodium 138.9 mmol/L (137-145) 10/18/19 05:17 Potassium 4.5 mmol/L (3.6-5.0) 10/18/19 05:17 Chloride 105 mmol/L (98-107) 10/18/19 05:17 Carbon Dioxide 29 mmol/L (22-30) 10/18/19 05:17 Anion Gap 5 (5-19) 10/18/19 05:17 BUN 11 mg/dL (7-20) 10/18/19 05:17 Creatinine 0.71 mg/dL (0.52-1.25) 10/18/19 05:17 Est GFR ( Amer) > 60 (>60) 10/18/19 05:17 Est GFR (MDRD) Non-Af > 60 (>60) 10/18/19 05:17 Glucose 109 mg/dL (75-110) 10/18/19 05:17 Hemoglobin A1c % 5.6 % (4.7-6.0) 10/18/19 05:27 Calcium 8.6 mg/dL (8.4-10.2) 10/18/19 05:17 Total Bilirubin 0.6 mg/dL (0.2-1.3) 10/17/19 07:07 Direct Bilirubin 0.4 mg/dL (0.0-0.4) 10/17/19 07:07 Neonat Total Bilirubin Not Reportable 10/17/19 07:07 Neonat Direct Bilirubin Not Reportable 10/17/19 07:07 Neonat Indirect Bili Not Reportable 10/17/19 07:07 AST 51 U/L (17-59) 10/17/19 07:07 ALT 48 U/L (<50) 10/17/19 07:07 Alkaline Phosphatase 72 U/L (38-126) 10/17/19 07:07 Creatine Kinase 411 U/L (55-170) H 10/17/19 07:07 CK-MB (CK-2) 2.06 ng/mL (<4.55) 10/17/19 07:07 Troponin I < 0.012 ng/mL 10/17/19 10:34 NT-Pro-B Natriuret Pep 1230 pg/mL (<125) H 10/17/19 07:07 Total Protein 7.3 g/dL (6.3-8.2) 10/17/19 07:07 Albumin 3.8 g/dL (3.5-5.0) 10/17/19 07:07 Triglycerides 107 mg/dL (<150) 10/18/19 05:17 Cholesterol 131.23 mg/dL (0-200) 10/18/19 05:17 LDL Cholesterol Direct 99 mg/dL (<100) 10/18/19 05:17 VLDL Cholesterol 21.0 mg/dL (10-31) 10/18/19 05:17 HDL Cholesterol 32 mg/dL (>40) L 10/18/19 05:17 TSH 1.74 uIU/mL (0.47-4.68) 10/17/19 07:07 Urine Color YELLOW 10/17/19 09:03 Urine Appearance CLEAR 10/17/19 09:03 Urine pH 5.0 (5.0-9.0) 10/17/19 09:03 Ur Specific [place] 1.020 10/17/19 09:03 Urine Protein >=500 mg/dL (NEGATIVE) H 10/17/19 09:03 Urine Glucose (UA) NEGATIVE mg/dL (NEGATIVE) 10/17/19 09:03 Urine Ketones NEGATIVE mg/dL (NEGATIVE) 10/17/19 09:03 Urine Blood NEGATIVE (NEGATIVE) 10/17/19 09:03 Urine Nitrite NEGATIVE (NEGATIVE) 10/17/19 09:03 Urine Bilirubin NEGATIVE (NEGATIVE) 10/17/19 09:03 Urine Urobilinogen 2.0 mg/dL (<2.0) H 10/17/19 09:03 Ur Leukocyte Esterase NEGATIVE (NEGATIVE) 10/17/19 09:03 Urine WBC (Auto) 2 /HPF 10/17/19 09:03 Urine RBC (Auto) 2 /HPF 10/17/19 09:03 U Hyaline Cast (Auto) 6 /LPF 10/17/19 09:03 Urine Mucus (Auto) OCC /LPF 10/17/19 09:03 Urine Ascorbic Acid 20 (NEGATIVE) H 10/17/19 09:03 Urine Opiates Screen NEGATIVE 10/17/19 09:03 Urine Methadone Screen NEGATIVE 10/17/19 09:03 Ur Barbiturates Screen NEGATIVE 10/17/19 09:03 Ur Phencyclidine Scrn NEGATIVE 10/17/19 09:03 Ur Amphetamines Screen NEGATIVE 10/17/19 09:03 U Benzodiazepines Scrn NEGATIVE 10/17/19 09:03 Urine Cocaine Screen NEGATIVE 10/17/19 09:03 U Marijuana (THC) Screen NEGATIVE 10/17/19 09:03 Serum Alcohol < 10 mg/dL (NONE DETECTED) 10/17/19 07:07 RPR NONREACTIVE (NONREACTIVE) 10/18/19 14:16 HIV 1&2 Antibody NEGATIVE (NEGATIVE) 10/18/19 14:16 10/17/19 10/17/19 10/17/19 07:07 07:07 10:34 CK-MB (CK-2) 2.06 Troponin I < 0.012 < 0.012 NT-Pro-B Natriuret Pep 1230 H Impressions: Chest X-Ray 10/17/19 07:34 IMPRESSION: Mild vascular congestion. Possible superimposed right lower lobe pneumonia. Plan Plan of Treatment: Patient is discharged home with self-care. He is advised to follow-up with his primary care provider within 1 week. He is instructed to take his medication as prescribed. He is advised to stop smoking. Eat a low-sodium diet. Weigh himself daily and report any weight gain greater than 2 pounds to his provider. He is encouraged to return to the emergency department as needed for concerning symptoms. Time Spent: Greater than 30 Minutes Stroke Is this a Stroke Patient?: No Acute Heart Failure - Is this a Heart Failure Patient?: Yes Documentation of LVEF assessment?: No, Document reason - Echo report pending at time of discharge. LVEF < 40%?: No- if no continue to question #3 3. Anticoagulant therapy for permanect/persistent/paraoxysmal Afib or Aflutter: No, document contraindications Reason(s) not discharged on anticoagulant therapy for permanect/persistent/paraoxysmal Afib or Aflutter: Uncooperative/unreliable patient Follow-up Appointment scheduled within 7 days?: Yes
[2019-10-19 16:51] VITALS: BP 121/73
--- NOTE | 2019-10-19 21:59 | XCELERA REPORT ---
[address] [address] Transthoracic Echocardiogram Report Name: EB ZAMUDIO Age: 49 yrs Gender: Male : 1970 Patient Status: Inpatient Patient Location: [address] [place] [address] Study Date: 10/19/2019 02:27 PM Height: 68 in Weight: 230 lb BSA: 2.2 m2 Procedure: A two-dimensional transthoracic echocardiogram with color flow and Doppler was performed. Study Quality: Fair. Reason For Study: CHF History: CHF. Ordering Physician: TORIN HAMMOND Performed By: Amanda Marcos Interpretation Summary The left ventricle is normal in size. There is normal left ventricular wall thickness. LV EF is 60% Left ventricular systolic function is low normal. The left ventricular wall motion is normal. There is no thrombus. There is no ventricular septal defect visualized. The right ventricle is normal in size and function. The right atrium is normal. The left atrial size is normal. The interatrial septum is intact with no evidence for an atrial septal defect. There is no Doppler evidence for an interatrial shunt There is no evidence of mitral valve prolapse. There is no vegetation seen on the mitral valve. There is no mitral valve stenosis. There is a mild amount of mitral regurgitation There is no aortic valvular vegetation. There is no aortic valve stenosis There is no LVOT obstruction. No aortic regurgitation is present. There is no tricuspid stenosis. There is a trace to mild amount of tricuspid regurgitation There is mild pulmonary hypertension by echo RVSP is 31 to 36 mm of Hg , with RA mean of 5 to 10. There is no pulmonic valvular stenosis. There is no pulmonic valvular regurgitation. The aortic root is normal size. The inferior vena cava appeared normal and decreased > 50% with respiration (RAP 5-10 mmHg) There is no pericardial effusion. MMode/2D Measurements & Calculations RVDd: 2.5 cm LVIDd: 5.2 cm FS: 32.8 % Ao root diam: 2.8 cm IVSd: 1.2 cm LVIDs: 3.5 cm EDV(Teich): 130.5 ml Ao root area: 6.0 cm2 LVPWd: 0.89 cm ESV(Teich): 51.1 ml LA dimension: 3.3 cm EF(Teich): 60.9 % Doppler Measurements & Calculations MV E max peace: MV P1/2t max peace: Ao V2 max: LV V1 max P.4 cm/sec 142.5 cm/sec 106.1 cm/sec 5.7 mmHg MV P1/2t: 53.7 msec Ao max P.5 mmHgLV V1 max: MVA(P1/2t): 4.1 cm2 119.3 cm/sec MV dec slope: 777.5 cm/sec2 MV dec time: 0.17 sec PA V2 max: TR max peace: MV P1/2t-pr_phl: 55.5 cm/sec 253.1 cm/sec 53.7 msec PA max P.2 mmHgTR max P.6 mmHg Left Ventricle The left ventricle is normal in size. There is normal left ventricular wall thickness. LV EF is 60%. Left ventricular systolic function is low normal. LV diastolic function could not be adequately assessed due to atrial fibrilation. The left ventricular wall motion is normal. There is no thrombus. There is no ventricular septal defect visualized. Right Ventricle The right ventricle is normal in size and function. Atria The right atrium is normal. The left atrial size is normal. The interatrial septum is intact with no evidence for an atrial septal defect. There is no Doppler evidence for an interatrial shunt. Mitral Valve There is no evidence of mitral valve prolapse. There is no vegetation seen on the mitral valve. There is no mitral valve stenosis. There is a mild amount of mitral regurgitation. Aortic Valve There is no aortic valvular vegetation. There is no aortic valve stenosis. There is no LVOT obstruction. No aortic regurgitation is present. Tricuspid Valve There is no tricuspid stenosis. There is a trace to mild amount of tricuspid regurgitation. There is mild pulmonary hypertension by echo. RVSP is 31 to 36 mm of Hg , with RA mean of 5 to 10. Pulmonic Valve There is no pulmonic valvular stenosis. There is no pulmonic valvular regurgitation. Great Vessels The aortic root is normal size. The inferior vena cava appeared normal and decreased > 50% with respiration (RAP 5-10 mmHg). Effusions There is no pericardial effusion. : TORIN HAMMOND Lakshmi
== END 2019-10-19 17:29 | disposition home or self-care (01) | DRG 293 ==
LOC: ER 07:00 → EH 11:35 → 3S 13:31
PROVIDERS: ADMIT Internal Medicine; ATTEND Internal Medicine
DX: I11.0 Hypertensive heart disease with heart failure (principal); I50.9 Heart failure, unspecified; I48.91 Unspecified atrial fibrillation; E66.9 Obesity, unspecified; F17.210 Nicotine dependence, cigarettes, uncomplicated; Z91.14 Patient's other noncompliance with medication regimen; Z68.34 Body mass index [BMI] 34.0-34.9, adult
CPT/HCPCS: 36415; 71045; 80048; 80053; 80061; 80307; 81001; 82550; 82553; 83036; 83880; 84443; 84484; 85025; 85027; 85610; 85730; 86592; 86701; 93005; 93010; 93306; 96365; 96375; 96376; 99285; J0360; J1644; J1940; J2270; J3490

== ENCOUNTER 2019-11-05 06:23 | Emergency (ER) | payer SELFPAY ==
[2019-11-05 08:08] LABS: ABSOLUTE BASOPHILS # (AUTO) 0.1 10^3/uL (0.0-0.2); ABSOLUTE EOSINOPHILS # (AUTO) 0.4 10^3/uL (0.0-0.6); ABSOLUTE MONOCYTES (AUTO) 0.6 10^3/uL (0.1-1.4); ABSOLUTE NEUT (AUTO) 4.4 10^3/uL (1.7-8.2); BASOPHILS % (AUTO) 0.7 % (0-2); EOSINOPHILS % (AUTO) 4.8 % (0-6); HEMATOCRIT 42.4 % (37.9-51.0); HEMOGLOBIN 14.1 g/dL (13.5-17.0); MEAN CORPUSCULAR HEMOGLOBIN 28.9 pg (27.0-33.4); MEAN CORPUSCULAR HGB CONC 33.3 g/dL (32.0-36.0); MEAN CORPUSCULAR VOLUME 87 fl (80-97); MONOCYTES % (AUTO) 8.3 % (3-13); PLATELET COUNT 228 10^3/uL (150-450); RED BLOOD COUNT 4.88 10^6/uL (4.35-5.55); RED CELL DISTRIBUTION WIDTH 14.4 % (11.5-14.0); SEGMENTED NEUTROPHILS % (AUTO) 59.2 % (42-78); TOTAL CELLS COUNTED % (AUTO) 100 %; WHITE BLOOD COUNT 7.4 10^3/uL (4.0-10.5)
[2019-11-05 08:13] LABS: APPEARANCE,URINE CLEAR; BILIRUBIN,URINE NEGATIVE (NEGATIVE); COLOR,URINE YELLOW; GLUCOSE, URINE NEGATIVE (NEGATIVE); KETONES,URINE NEGATIVE (NEGATIVE); LEUKOCYTE ESTERASE,URINE NEGATIVE (NEGATIVE); NITRITE,URINE NEGATIVE (NEGATIVE); PROTEIN,URINE NEGATIVE (NEGATIVE); URINE SPECIFIC GRAVITY 1.014; UROBILINOGEN,URINE NEGATIVE mg/dL (<2.0)
--- NOTE | 2019-11-05 08:19 | ER Document Report ---
ED General - General Chief Complaint: Shortness Of Breath Stated Complaint: TROUBLE BREATHING Time Seen by Provider: 11/05/19 07:40 Notes: 41-year male presents shortness of breath onset 2 days ago when running out of Lasix worse with exertion and lying flat. Intermittent chest pressure during the shortness of breath "I think my anxiety" with no radiation or joby chest pain. Increased ankle edema as well. Patient was discharged from a recent hospital admission with a full complement of A. fib/CHF meds prior to Lasix administration following with cardiology. Positive cough no phlegm no fever. TRAVEL OUTSIDE OF THE [place] IN LAST 30 DAYS: No - Related Data Allergies/Adverse Reactions: No Known Allergies Allergy (Verified 11/05/19 08:14) Home Medications: losartan 50 mg qday. lasix 40 mg qday (2-3 days has none). cardiazem 60 mg q6h. metoprolol ER 25mg Past Medical History - Social History Smoking Status: Current Every Day Smoker Smoking Education Provided: Yes - The patient ED visit today was directly related to their abuse of tobacco. Family History: Reviewed & Not Pertinent Patient has suicidal ideation: No Patient has homicidal ideation: No - Past Medical History Cardiac Medical History: Reports: Hx Congestive Heart Failure, Hx Hypertension Past Surgical History: Reports: Hx Orthopedic Surgery - Right hand Review of Systems - Review of Systems Notes: REVIEW OF SYSTEMS GEN: Denies fever, chills, weight loss ENT: Denies sore throat, nasal discharge, ear pain EYES: Denies blurry vision, eye pain, discharge CV: Denies chest pain, positive chest pressure, denies palpitations, positive leg edema RESP: Dyspnea on exertion orthopnea GI: Denies abdominal pain, nausea, vomiting, diarrhea MSK: Denies joint pain/swelling, edema, SKIN: Denies rash, skin lesions LYMPH: Denies swollen glands/lymph nodes NEURO: Denies headache, focal weakness or numbness, dizziness PSYCH: Denies depression, suicidal or homicidal ideation PHYSICAL EXAMINATION General: No acute distress, well-nourished Head: Atraumatic, normocephalic ENT: Mouth normal, oropharynx moist, no exudates or tonsillar enlargement Eyes: Conjunctiva normal, pupils equal, lids normal Neck: No JVD, supple, no guarding CVS: Normal rate, regular rhythm, no murmurs Resp: Diminished at bases, no distress GI: Nondistended, soft, no tenderness to palpation, no rebound or guarding Ext: No deformities, bilateral leg edema, normal range of motion in upper and lower ext Back: No CVA or midline TTP Skin: No rash, warm Lymphatic: No lymphadeopathy noted Neuro: Awake, alert. Face symmetric. GCS 15. Physical Exam - Vital signs Vitals: Temp Pulse Resp BP Pulse Ox 97.8 F 85 22 H 127/86 H 94 11/05/19 06:41 11/05/19 06:41 11/05/19 06:41 11/05/19 06:41 11/05/19 06:41 Course - Re-evaluation Re-evalutation: 11/05/19 10:20 Patient presents shortness of breath likely due to decompensated CHF poor follow-up and med noncompliance. Given Lasix. Saturation is 96 at rest after. Mild elevation of BNP with no joby pulmonary edema otherwise labs normal. Given option for admissionprefers discharge. Will start back on Lasix [facility] Was able to ambulate with minimal disc omfort, saturation went down to 91 recovered rapidly 96. I have discussed with the patient there likely diagnosis, aftercare plan, follow-up plans and my usual and customary return precautions. They verbalized understanding of this. - Vital Signs Vital signs: Temp Pulse Resp BP Pulse Ox 97.8 F 85 22 H 150/108 H 92 11/05/19 06:41 11/05/19 06:41 11/05/19 10:00 11/05/19 09:29 11/05/19 10:00 - Laboratory Result Diagrams: 11/05/19 07:50 11/05/19 07:50 Laboratory results interpreted by me: 11/05/19 11/05/19 11/05/19 07:40 07:50 07:50 RDW 14.4 H Glucose 116 H NT-Pro-B Natriuret Pep Urine Blood SMALL H 11/05/19 07:50 RDW Glucose NT-Pro-B Natriuret Pep 977 H Urine Blood - Diagnostic Test Radiology reviewed: Image reviewed, Reports reviewed - EKG Interpretation by Me Rate: Normal Rhythm: A.Fib When compared to previous EKG there are: No significant change Discharge - Discharge Clinical Impression: Acute exacerbation of congestive heart failure Qualifiers: Heart failure type: diastolic Qualified Code(s): I50.33 - Acute on chronic diastolic (congestive) heart failure Condition: Good Disposition: HOME, SELF-CARE Instructions: Congestive Heart Failure ([facility]) Additional Instructions: Please call and follow-up with your doctor that you had an appointment with alreadyprimary care Prescriptions: Furosemide [Lasix 40 mg Tablet] 40 mg PO QAM #30 tablet Referrals: [facility] [Provider Group] - Follow up as needed
[2019-11-05] MEDS ORDERED: FUROSEMIDE INJ/PF 40 MG/4 ML SDV IV ONE (08:20)
[2019-11-05 08:25] LABS: ALBUMIN 4.2 g/dL (3.5-5.0); ALKALINE PHOSPHATASE 78 U/L (38-126); ANION GAP 6 (5-19); ASPARTATE AMINO TRANSFERASE 24 U/L (17-59); BILIRUBIN,TOTAL 0.4 mg/dL (0.2-1.3); BLOOD UREA NITROGEN 13 mg/dL (7-20); CALCIUM 9.5 mg/dL (8.4-10.2); CARBON DIOXIDE 30 mmol/L (22-30); CHLORIDE 104 mmol/L (98-107); CREATINE KINASE 152 U/L (55-170); GLUCOSE 116 mg/dL (75-110); POTASSIUM 4.9 mmol/L (3.6-5.0); TOTAL PROTEIN 7.4 g/dL (6.3-8.2)
[2019-11-05 08:37] LABS: CREATINE KINASE MB 1.62 ng/mL (<4.55); NT PRO BNP 977 pg/mL (<125)
[2019-11-05 08:40] LABS: TROPONIN I < 0.012 ng/mL
--- NOTE | 2019-11-05 08:46 | RADIOLOGY REPORT (SQ) ---
EXAM DESCRIPTION: CHEST 2 VIEWS COMPLETED DATE/TIME: 11/05/2019 8:14 am REASON FOR STUDY: sob COMPARISON: None. EXAM PARAMETERS: NUMBER OF VIEWS: two views TECHNIQUE: Digital Frontal and Lateral radiographic views of the chest acquired. RADIATION DOSE: NA LIMITATIONS: none FINDINGS: LUNGS AND PLEURA: No opacities, masses or pneumothorax. No pleural effusion. MEDIASTINUM AND HILAR STRUCTURES: No masses or contour abnormalities. HEART AND VASCULAR STRUCTURES: Heart normal size. No evidence for failure. BONES: No acute findings. HARDWARE: None in the chest. OTHER: No other significant finding. IMPRESSION: NO ACUTE RADIOGRAPHIC FINDING IN THE CHEST. TECHNICAL DOCUMENTATION: JOB ID: [id number] 2010 [employer]- All Rights Reserved Reading location - IP/workstation name: [email or web address]
--- NOTE | 2019-11-05 09:11 | EKG REPORT ---
SEVERITY:- ABNORMAL ECG - ATRIAL FIBRILLATION, V-RATE 85-104 : Confirmed by: Adam Rodriguez 05-Nov-2019 09:09:52
[2019-11-05 10:32] VITALS: BP 142/95
== END 2019-11-05 10:32 | disposition home or self-care (01) ==
LOC: ER 06:23
DX: I11.0 Hypertensive heart disease with heart failure (principal); I50.33 Acute on chronic diastolic (congestive) heart failure; R06.02 Shortness of breath; F17.200 Nicotine dependence, unspecified, uncomplicated
CPT/HCPCS: 93005; 36415; 82553; 82550; 85025; 80053; 81001; 84484; 83880; 71046; 93010; J1940

== ENCOUNTER 2019-12-16 00:33 | Observation (INO) | payer SELFPAY ==
[2019-12-16 00:51] LABS: ABSOLUTE BASOPHILS # (AUTO) 0.1 10^3/uL (0.0-0.2); ABSOLUTE EOSINOPHILS # (AUTO) 0.1 10^3/uL (0.0-0.6); ABSOLUTE LYMPHOCYTES (AUTO) 2.2 10^3/uL (0.5-4.7); ABSOLUTE MONOCYTES (AUTO) 0.6 10^3/uL (0.1-1.4); ABSOLUTE NEUT (AUTO) 5.4 10^3/uL (1.7-8.2); BASOPHILS % (AUTO) 0.7 % (0-2); EOSINOPHILS % (AUTO) 0.8 % (0-6); HEMATOCRIT 41.2 % (37.9-51.0); HEMOGLOBIN 13.9 g/dL (13.5-17.0); LYMPHOCYTES % (AUTO) 26.5 % (13-45); MEAN CORPUSCULAR HEMOGLOBIN 29.1 pg (27.0-33.4); MEAN CORPUSCULAR HGB CONC 33.7 g/dL (32.0-36.0); MEAN CORPUSCULAR VOLUME 86 fl (80-97); MONOCYTES % (AUTO) 7.3 % (3-13); PLATELET COUNT 238 10^3/uL (150-450); RED BLOOD COUNT 4.78 10^6/uL (4.35-5.55); RED CELL DISTRIBUTION WIDTH 14.4 % (11.5-14.0); SEGMENTED NEUTROPHILS % (AUTO) 64.7 % (42-78); TOTAL CELLS COUNTED % (AUTO) 100 %; WHITE BLOOD COUNT 8.4 10^3/uL (4.0-10.5)
[2019-12-16] MEDS ORDERED: PROMETHAZINE HCL INJ 25 MG/1 ML VIAL IM ONE (01:03)
[2019-12-16] MEDS ORDERED: NORMAL SALINE 1000 ML 1,000 ML IV ONE (01:03)
--- NOTE | 2019-12-16 01:04 | ER Document Report ---
ED General - General Chief Complaint: Chest Pain > 30 Stated Complaint: CHEST PAIN Time Seen by Provider: 12/16/19 00:46 Notes: Patient is a 49-year-old male that comes emergency department for chief complaint of shortness of breath, feeling like his heart is racing with palpitations, and he vomited twice. He comes by EMS, was given 25 mg of Cardizem IV, he has a history of atrial fibrillation, is on metoprolol and Eliquis. Patient does admit on further questioning that he drank "a whole bottle of old [place] liquor" today. He denies chest pain, abdominal pain, headache, or any other complaints at this time. He denies recreational drugs. He admits to smoking. He had a normal echo on 10/19/2019 with left ventricular ejection fraction of 60%. He states he does not follow with any primary care providers or cardiologists at this time. TRAVEL OUTSIDE OF THE [place] IN LAST 30 DAYS: No - Related Data Allergies/Adverse Reactions: No Known Allergies Allergy (Verified 11/05/19 08:14) Past Medical History - General Information source: Patient - Social History Smoking Status: Current Every Day Smoker Frequency of alcohol use: Occasional Drug Abuse: None Lives with: Family Family History: Reviewed & Not Pertinent Patient has suicidal ideation: No Patient has homicidal ideation: No - Past Medical History Cardiac Medical History: Reports: Hx Atrial Fibrillation, Hx Hy percholesterolemia, Hx Hypertension Denies: Hx Congestive Heart Failure - Ejection fraction greater than 60 Past Surgical History: Reports: Hx Orthopedic Surgery - Right hand - Immunizations Immunizations up to date: Yes Hx Diphtheria, Pertussis, Tetanus Vaccination: Yes Review of Systems - Review of Systems Constitutional: No symptoms reported EENT: No symptoms reported Cardiovascular: See HPI Respiratory: See HPI Gastrointestinal: No symptoms reported Genitourinary: No symptoms reported Male Genitourinary: No symptoms reported Musculoskeletal: No symptoms reported Skin: No symptoms reported Hematologic/Lymphatic: No symptoms reported Neurological/Psychological: See HPI Physical Exam - Vital signs Vitals: Pulse Ox 100 12/16/19 00:44 - Notes Notes: GENERAL: Drowsy but arousable, does not appear to be in distress HEAD: Normocephalic, atraumatic. EYES: Pupils equal, round, and reactive to light. Extraocular movements intact. ENT: Oral mucosa very dry, tongue midline. Oropharynx unremarkable. Airway patent. NECK: Full range of motion. Supple. Trachea midline. No lymphadenopathy. LUNGS: Clear to auscultation bilaterally, no wheezes, rales, or rhonchi. No r espiratory distress. Non-tender chest wall. HEART: Irregularly irregular, tachycardia, no murmur ABDOMEN: Soft, non-tender. Non-distended. EXTREMITIES: Moves all 4 extremities spontaneously. No edema, normal radial and dorsalis pedis pulses bilaterally. No cyanosis. BACK: no cervical, thoracic, lumbar midline tenderness. No saddle anesthesia, normal distal neurovascular exam. Moves all extremities in full range of motion. NEUROLOGICAL: Drowsy but oriented x3. Normal speech. Cranial nerves II through XII grossly intact. Strength 5/5 in all extremities. PSYCH: Irritable SKIN: Warm, dry, normal turgor. No rashes or lesions noted. Course - Re-evaluation Re-evalutation: On initial examination patient is drowsy but still responsive, he is not a very good historian but he does admit to drinking alcohol this morning, he has re ceived Cardizem bolus at 25 mg IV from EMS and he is in atrial fibrillation without rapid ventricular response. He was given IV fluid bolus, he was given nausea medication after complaining of nausea. He states he vomited twice. CBC, chemistry, lipase unremarkable, troponin negative, magnesium unremarkable, alcohol is actually negative. On reevaluation patient has begun to have atrial fibrillation with rapid ventricular response up to the 160s and for a brief very short period greater than 175. Patient was given additional Cardizem bolus, placed on a drip. Initially this was very successful with heart rate down into the 80s or even better, however when I reevaluate him again his heart rate was back in the 130s. I discussed with Dr. Churchill. Recommends increase cardizem rate and admit to the hospital. I discussed this with patient, patient is very sleepy, has difficulty staying awake, this could be partly the Phenergan, he states that he is slept very poorly lately. He denies recreational drugs again. He does state agreement with staying. Discussed with Dr. Churchill, hospitalist, patient excepted to IMCU observation. He requests 5 mg metoprolol IV bolus up to every 5 minutes for a total of 15 mg until heart rate is averaging below 100 or blood pressure is less than 120 syst olic. I discussed this with nurse taking care of the patient in detail. - Vital Signs Vital signs: Temp Pulse Resp BP Pulse Ox 19 131/79 H 100 12/16/19 05:47 12/16/19 05:47 12/16/19 04:01 - Laboratory Result Diagrams: 12/16/19 00:40 12/16/19 00:40 Laboratory results interpreted by me: 12/16/19 12/16/19 00:40 00:40 RDW 14.4 H Glucose 174 H Discharge - Discharge Clinical Impression: Atrial fibrillation with RVR, Shortness of breath Condition: Stable Disposition: ADMITTED OBSERVATION Admitting Provider: Carlos (Hospitalist) Unit Admitted: MARC
[2019-12-16 01:22] LABS: ALKALINE PHOSPHATASE 83 U/L (38-126); ANION GAP 9 (5-19); ASPARTATE AMINO TRANSFERASE 50 U/L (17-59); BILIRUBIN,DIRECT 0.1 mg/dL (0.0-0.4); BILIRUBIN,TOTAL 0.4 mg/dL (0.2-1.3); BLOOD UREA NITROGEN 17 mg/dL (7-20); CALCIUM 9.2 mg/dL (8.4-10.2); CARBON DIOXIDE 29 mmol/L (22-30); CHLORIDE 102 mmol/L (98-107); CREATINE KINASE 145 U/L (55-170); GLUCOSE 174 mg/dL (75-110); POTASSIUM 4.4 mmol/L (3.6-5.0); TOTAL PROTEIN 7.3 g/dL (6.3-8.2)
[2019-12-16 01:26] LABS: ALCOHOL < 10 mg/dL (NONE DETECTED)
[2019-12-16 01:34] LABS: CREATINE KINASE MB 1.66 ng/mL (<4.55)
[2019-12-16 01:39] LABS: TROPONIN I < 0.012 ng/mL
--- NOTE | 2019-12-16 02:00 | RADIOLOGY REPORT (SQ) ---
EXAM DESCRIPTION: XR CHEST 1 VIEW COMPLETED DATE/TME: 12/16/2019 01:02 CLINICAL HISTORY: 49 years, Male, shortness of breath COMPARISON: 10/17/2019 chest NUMBER OF VIEWS: 1 TECHNIQUE: Portable chest LIMITATIONS: None. FINDINGS: The heart is enlarged but stable. Lungs are clear. No pneumothorax IMPRESSION: No acute cardiopulmonary process copyright 2011 [employer]- All Rights Reserved
[2019-12-16] MEDS ORDERED: DILTIAZEM HCL/D5W 125 MG/125 ML RTUINJ IV PRN (02:40)
[2019-12-16] MEDS ORDERED: DILTIAZEM HCL INJ 25 MG/5 ML VIAL IV ONE ×3 (02:40→10:00)
[2019-12-16] MEDS ORDERED: METOPROLOL TARTRATE PF/INJ 5 MG/5 ML SDV IV ONE (05:42)
[2019-12-16] MEDS ORDERED: METOPROLOL TARTRATE PF/INJ 5 MG/5 ML SDV IV PRN (05:44)
[2019-12-16] MEDS ORDERED: LEVALBUTEROL HCL NEB 0.63 MG/3 ML AMPUL NEB PRN (06:09)
[2019-12-16] MEDS ORDERED: MAGNESIUM HYDROXIDE SUSP 30 ML UDCUP PO PRN (06:09)
[2019-12-16] MEDS ORDERED: ONDANSETRON HCL INJ/PF 4 MG/2 ML SDV IV PRN (06:09)
[2019-12-16] MEDS ORDERED: NICOTINE 21 MG/24 HR PATCH.TD24 TD PRN (06:11)
[2019-12-16] MEDS ORDERED: LORAZEPAM INJ 2 MG/1 ML VIAL IV PRN (06:11)
[2019-12-16] MEDS ORDERED: METOPROLOL TARTRATE 100 MG TABLET PO ONE (06:13)
--- NOTE | 2019-12-16 08:29 | EKG REPORT ---
SEVERITY:- ABNORMAL ECG - SINUS TACHYCARDIA MULTIFORM VENTRICULAR PREMATURE COMPLEXES : Confirmed by: Adam Rodriguez 16-Dec-2019 08:28:21
[2019-12-16 08:59] LABS: CREATINE KINASE MB 1.97 ng/mL (<4.55)
[2019-12-16 09:07] LABS: TROPONIN I < 0.012 ng/mL
[2019-12-16] MEDS ORDERED: METOPROLOL SUCCINATE 50 MG TAB.SR.24H PO SCH ×2 (10:00)
[2019-12-16] MEDS: FAMOTIDINE 20 MG TABLET PO SCH ×2 (10:05→22:01)
[2019-12-16] MEDS: DOCUSATE SODIUM 100 MG CAPSULE PO SCH ×2 (10:05→18:33)
[2019-12-16] MEDS: APIXABAN 5 MG TABLET PO SCH ×2 (10:05→18:32)
--- NOTE | 2019-12-16 10:17 | PDOC H&P ---
History of Present Illness Admission Date/PCP: 12/16/2019 06:03 No local PCP Patient complains of: Palpitations History of Present Illness: EB ZAMUDIO is a 49 year old male who presented the emergency room via EMS with acute palpitations. He admits the sudden onset of severe palpitations at home shortly prior to his arrival at the emergency room. Palpitations were accompanied by moderate to severe dyspnea and were associated with nausea and 2 episodes of vomiting. He denies other associated or accompanying signs and symptoms. He admits prior similar episodes related to his atrial fibrillation. He is on chronic anticoagulation with Eliquis and also takes metoprolol to control his heart rate. He drank a whole bottle of liquor over the course of the morning of 12/15/2019. He has not identified any additional aggravating or ameliorating factors for his palpitations. In the emergency room he was found to have atrial fibrillation with a rapid ventricular response and did not respond well to efforts at control with a Cardizem drip was subsequently admitted to the hospital for further evaluation and treatment. Past Medical History Cardiac Medical History: Reports: Atrial Fibrillation, Hyperlipidema, Hypertension Denies: Congestive Heart Failure, Coronary Artery Disease, Myocardial Infarction, Peripheral Vascular Disease Pulmonary Medical History: Denies: Asthma, Chronic Obstructive Pulmonary Disease (COPD) EENT Medical History: Denies: Cataracts, Ears - Hearing aids Neurological Medical History: Denies: Hemorrhagic CVA, Ischemic CVA, Seizures Endocrine Medical History: Reports: Obesity Denies: Diabetes Mellitus Type 1, Diabetes Mellitus Type 2, Hyperthyroidism, Hypothyroidism Renal/ Medical History: Denies: Chronic Kidney Disease, Nephrolithiasis Malignancy Medical History: Reports: None GI Medical History: Denies: Cirrhosis, Crohn's Disease, Hepatitis, Ulcerative Colitis Musculoskeltal Medical History: Denies: Arthritis, Gout Skin Medical History: Denies: Eczema, Psoriasis Psychiatric Medical History: Denies: Alcohol Dependency, Substance Abuse, Tobacco Dependency Traumatic Medical History: Reports: None Hematology: Denies: Anemia, Bleeding Tendencies Infectious Medical History: Reports: None Past Surgical History Past Surgical History: Reports: Orthopedic Surgery - Right hand Social History Information Source: Patient Lives with: Spouse/Significant other Smoking Status: Current Every Day Smoker Cigarettes Packs Per Day: 1 Electronic Cigarette use?: No Frequency of Alcohol Use: Social Hx Recreational Drug Use: No Drugs: None Hx Prescription Drug Abuse: No - Advance Directive Resuscitation Status: Full Code Surrogate healthcare decision maker:: Shell Leal Family History Family History: CAD, Hyperlipidemia, Hypertension Parental Family History Reviewed: Yes Children Family History Reviewed: No Sibling(s) Family History Reviewed.: Yes Medication/Allergy Home Medications: Acetaminophen [Tylenol 325 mg Tablet] 650 mg PO Q4HP PRN #0 tablet 10/19/19 Diltiazem HCl [Cardizem 60 mg Tablet] 60 mg PO Q6 #120 tablet 10/19/19 Furosemide [Lasix 20 mg Tablet] 40 mg PO DAILY #60 tablet 10/19/19 Losartan Potassium [Cozaar 50 mg Tablet] 50 mg PO DAILY #30 tablet 10/19/19 Metoprolol Succinate [Toprol Xl 25 mg Tab.sr] 25 mg PO Q12 #60 tab.sr.24h 10/19/19 Nicotine [Nicoderm 21 mg/24 Hr Transderm Patch] 1 each TD DAILY #30 patch.td24 10/19/19 Furosemide [Lasix 40 mg Tablet] 40 mg PO QAM #30 tablet 11/05/19 Allergies/Adverse Reactions: No Known Allergies Allergy (Verified 11/05/19 08:14) Review of Systems Constitutional: ABSENT: chills, fever(s) Eyes: ABSENT: visual disturbances, other - Eye pain Ears: ABSENT: hearing changes, other - Ear pain Nose, Mouth, and Throat: ABSENT: headache(s), sore throat Cardiovascular: PRESENT: as per HPI, palpitations. ABSENT: chest pain Respiratory: PRESENT: as per HPI, dyspnea. ABSENT: cough Gastrointestinal: PRESENT: nausea, vomiting. ABSENT: abdominal pain, constipation, diarrhea Genitourinary: ABSENT: dysuria, hematuria Musculoskeletal: ABSENT: back pain, joint swelling Integumentary: ABSENT: pruritus, rash Neurological: ABSENT: confusion, convulsions, focal weakness, memory loss, syncope Endocrine: ABSENT: cold intolerance, heat intolerance Hematologic/Lymphatic: ABSENT: easy bleeding, easy bruising Allergic/Immunologic: ABSENT: seasonal rhinorrhea Physical Exam Vital Signs: Temp Pulse Resp BP Pulse Ox 15 130/87 H 100 12/16/19 04:38 12/16/19 04:38 12/16/19 04:01 Intake & Output 12/14/19 12/15/19 12/16/19 23:59 23:59 23:59 Intake Total 1000 Balance 1000 Weight 108.862 kg General appearance: PRESENT: no acute distress, cooperative Head exam: PRESENT: atraumatic, normocephalic Eye exam: ABSENT: conjunctival injection, scleral icterus Ear exam: PRESENT: normal external ear exam. ABSENT: bleeding, drainage Mouth exam: PRESENT: dry mucosa, neck supple Neck exam: ABSENT: thyromegaly, tracheal deviation Respiratory exam: PRESENT: clear to auscultation conchita, symmetrical, unlabored Cardiovascular exam: PRESENT: irregular rhythm - Irregularly irregular rate and rhythm., tachycardia. ABSENT: clicks, gallop, rubs Pulses: PRESENT: normal radial pulses, normal dorsalis pedis pul Vascular exam: PRESENT: normal capillary refill. ABSENT: pallor GI/Abdominal exam: PRESENT: normal bowel sounds, soft Rectal exam: PRESENT: deferred Extremities exam: ABSENT: joint swelling, pedal edema Musculoskeletal exam: ABSENT: deformity, dislocation Neurological exam: PRESENT: alert, oriented to person, oriented to place, oriented to time, oriented to situation, CN II-XII grossly intact. ABSENT: motor sensory deficit Psychiatric exam: PRESENT: appropriate affect, normal mood Skin exam: PRESENT: dry, intact, warm. ABSENT: jaundice, rash, urticaria Results Laboratory Results: 12/16/19 00:40 12/16/19 00:40 12/16/19 12/16/19 12/16/19 00:40 00:40 00:40 WBC 8.4 RBC 4.78 Hgb 13.9 Hct 41.2 MCV 86 MCH 29.1 MCHC 33.7 RDW 14.4 H Plt Count 238 Seg Neutrophils % 64.7 Sodium 139.9 Potassium 4.4 Chloride 102 Carbon Dioxide 29 Anion Gap 9 BUN 17 Creatinine 1.17 Est GFR ( Amer) > 60 Glucose 174 H Calcium 9.2 Magnesium 1.9 Total Bilirubin 0.4 AST 50 Alkaline Phosphatase 83 Total Protein 7.3 Albumin 4.0 Lipase 40.2 TSH 12/16/19 00:40 WBC RBC Hgb Hct MCV MCH MCHC RDW Plt Count Seg Neutrophils % Sodium Potassium Chloride Carbon Dioxide Anion Gap BUN Creatinine Est GFR ( Amer) Glucose Calcium Magnesium Total Bilirubin AST Alkaline Phosphatase Total Protein Albumin Lipase TSH 2.07 12/16/19 12/16/19 12/16/19 00:40 00:40 03:28 Creatine Kinase 145 CK-MB (CK-2) 1.66 Troponin I < 0.012 < 0.012 Impressions: Chest X-Ray 12/16/19 01:02 IMPRESSION: No acute cardiopulmonary process copyright 2011 [employer]- All Rights Reserved Assessment and Plan - Diagnosis (1) Atrial fibrillation with rapid ventricular response Is this a current diagnosis for this admission?: Yes (2) Hypertension Qualifiers: Hypertension type: essential hypertension Qualified Code(s): I10 - Essential (primary) hypertension Is this a current diagnosis for this admission?: Yes (3) Tobacco dependence Is this a current diagnosis for this admission?: Yes (4) Obesity (BMI 30-39.9) Is this a current diagnosis for this admission?: Yes - Plan Summary Summary: Patient is admitted to an observation status bed on [facility] where he will receive routine supportive and symptomatic cares. He will be continued on his current Eliquis and his metoprolol dosage will be reestablished. His Cardizem infusion will be discontinued and he will be discharged home when his blood pressure and heart rate have remained stable for reasonable interval. Serial cardiac enzymes will be obtained. A CBC, magnesium level and metabolic profile will also be obtained as appropriate. Patient will use Ativan 1 mg IV every 4 hours as needed for anxiety or restlessness. Smoking cessation is advised and discussed previously at the bedside. A nicotine replacement patch will be available for the patient's use, if desired. - Time Time Spent with patient: 25-34 minutes Smoking Cessation Education: 3 to 10 minutes Medications reviewed and adjusted accordingly: Yes Anticipated discharge: Home - Inpatient Certification Based on my medical assessment, after consideration of the patient's comorbidities, presenting symptoms, or acuity I expect that the services needed warrant INPATIENT care.: No I certify that my determination is in accordance with my understanding of Medicare's requirements for reasonable and necessary INPATIENT services [42 CFR 412.3e].: No
[2019-12-16] MEDS ORDERED: DILTIAZEM HCL/D5W 125 MG/125 ML RTUINJ IV ONE (12:15)
[2019-12-16] MEDS: DILTIAZEM HCL/D5W 125 MG/125 ML RTUINJ IV PRN ×2 (12:25→23:23)
[2019-12-16 12:52] LABS: CREATINE KINASE MB 1.82 ng/mL (<4.55)
[2019-12-16 12:56] LABS: TROPONIN I < 0.012 ng/mL
--- NOTE | 2019-12-16 13:23 | Progress Note ---
Provider Note Provider Note: Patient was admitted after midnight last night for apparent atrial fibrillation with RVR, alcohol abuse, patient noncompliance, hyperlipidemia, hypertension. Patient's medications are being adjusted treat his atrial fib, and hypertension. Patient came in on a calcium channel deep, beta-deep, ARB. We will resume patient's metoprolol, Lasix, losartan as well as Eliquis
[2019-12-16] MEDS: RIVAROXABAN 10 MG TABLET PO SCH (13:57)
[2019-12-16] MEDS: HYDRALAZINE HCL INJ/PF 20 MG/1 ML SDV IV PRN (13:58)
[2019-12-16] MEDS: LOSARTAN POTASSIUM 50 MG TABLET PO SCH (13:58)
[2019-12-16] MEDS: FUROSEMIDE 20 MG TABLET PO SCH (14:21)
[2019-12-16 14:41] LABS: APPEARANCE,URINE CLEAR; BILIRUBIN,URINE NEGATIVE (NEGATIVE); COLOR,URINE YELLOW; GLUCOSE, URINE NEGATIVE (NEGATIVE); KETONES,URINE NEGATIVE (NEGATIVE); LEUKOCYTE ESTERASE,URINE NEGATIVE (NEGATIVE); NITRITE,URINE NEGATIVE (NEGATIVE); PROTEIN,URINE NEGATIVE (NEGATIVE); URINE SPECIFIC GRAVITY 1.016; UROBILINOGEN,URINE NEGATIVE mg/dL (<2.0)
[2019-12-16 15:10] LABS: URINE AMPHETAMINES SCREEN NEGATIVE; URINE BARBITURATES SCREEN NEGATIVE; URINE BENZODIAZEPINES SCREEN NEGATIVE; URINE MARIJUANA (THC) SCREEN NEGATIVE; URINE METHADONE SCREEN NEGATIVE; URINE PHENCYCLIDINE SCREEN NEGATIVE
[2019-12-16 15:15] LABS: URINE COCAINE SCREEN UNCONFIRMED POSITIVE
[2019-12-16] MEDS: NICOTINE 21 MG/24 HR PATCH.TD24 TD SCH (15:36)
[2019-12-16] MEDS: LORAZEPAM 1 MG TABLET PO PRN (15:36)
[2019-12-16] MEDS: LEVALBUTEROL HCL NEB 1.25 MG/3 ML AMPUL NEB SCH ×2 (16:43→20:49)
[2019-12-16] MEDS ORDERED: METOPROLOL SUCCINATE 50 MG TAB.SR.24H PO ONE (18:15)
[2019-12-16 19:04] LABS: CREATINE KINASE MB 1.41 ng/mL (<4.55)
[2019-12-16 19:05] LABS: TROPONIN I < 0.012 ng/mL
[2019-12-17] MEDS: LEVALBUTEROL HCL NEB 1.25 MG/3 ML AMPUL NEB SCH ×3 (00:14→08:51)
[2019-12-17] MEDS: ACETAMINOPHEN 325 MG TABLET PO PRN ×2 (02:08→07:56)
[2019-12-17 05:05] LABS: HEMATOCRIT 40.9 % (37.9-51.0); HEMOGLOBIN 13.7 g/dL (13.5-17.0); MEAN CORPUSCULAR HEMOGLOBIN 28.8 pg (27.0-33.4); MEAN CORPUSCULAR HGB CONC 33.5 g/dL (32.0-36.0); MEAN CORPUSCULAR VOLUME 86 fl (80-97); PLATELET COUNT 207 10^3/uL (150-450); RED BLOOD COUNT 4.76 10^6/uL (4.35-5.55); RED CELL DISTRIBUTION WIDTH 14.8 % (11.5-14.0); WHITE BLOOD COUNT 7.2 10^3/uL (4.0-10.5)
[2019-12-17 05:26] LABS: ANION GAP 5 (5-19); BLOOD UREA NITROGEN 11 mg/dL (7-20); CALCIUM 9.2 mg/dL (8.4-10.2); CARBON DIOXIDE 32 mmol/L (22-30); CHLORIDE 103 mmol/L (98-107); GLUCOSE 107 mg/dL (75-110); POTASSIUM 4.7 mmol/L (3.6-5.0)
[2019-12-17] MEDS ORDERED: METOPROLOL SUCCINATE 50 MG TAB.SR.24H PO ONE (07:00)
[2019-12-17] MEDS: LORAZEPAM 1 MG TABLET PO PRN (07:56)
[2019-12-17] MEDS: HYDRALAZINE HCL INJ/PF 20 MG/1 ML SDV IV PRN (08:08)
[2019-12-17] MEDS: RIVAROXABAN 10 MG TABLET PO SCH (10:16)
[2019-12-17] MEDS: FUROSEMIDE 20 MG TABLET PO SCH (10:17)
[2019-12-17] MEDS: DOCUSATE SODIUM 100 MG CAPSULE PO SCH (10:17)
[2019-12-17] MEDS: LOSARTAN POTASSIUM 50 MG TABLET PO SCH (10:17)
[2019-12-17] MEDS: NICOTINE 21 MG/24 HR PATCH.TD24 TD SCH (10:17)
[2019-12-17] MEDS: FAMOTIDINE 20 MG TABLET PO SCH (10:17)
[2019-12-17 12:32] VITALS: BP 143/82
--- NOTE | 2019-12-17 18:54 | PDOC DISCHARGE SUMMARY ---
Impression - Admit/DC Date/PCP Admission Date/Primary Care Provider: 12/16/19 06:02 Discharge Date: 12/17/19 - Discharge Diagnosis (1) Cocaine abuse Is this a current diagnosis for this admission?: Yes (2) Alcohol abuse Is this a current diagnosis for this admission?: Yes (3) Atrial fibrillation with rapid ventricular response Is this a current diagnosis for this admission?: Yes (4) Hypertension Is this a current diagnosis for this admission?: Yes (5) Tobacco dependence Is this a current diagnosis for this admission?: Yes - Assessment Summary: Patient is admitted to an observation status bed on [facility] where he will receive routine supportive and symptomatic cares. He will be continued on his current Eliquis and his metoprolol dosage will be reestablished. His Cardizem infusion will be discontinued and he will be discharged home when his blood pressure and heart rate have remained stable for reasonable interval. Serial cardiac enzymes will be obtained. A CBC, magnesium level and metabolic profile will also be obtained as appropriate. Patient will use Ativan 1 mg IV every 4 hours as needed for anxiety or restlessness. Smoking cessation is advised and discussed previously at the bedside. A nicotine replacement patch will be available for the patient's use, if desired. 12/17/2019 Patient was admitted and placed on Cardizem drip and given p.o. Toprol XL As noted approximately 2300 hrs. patient's heart rate went down to 89-91, susan at this level throughout most of the day Blood pressures appear stable around 150/80 Patient's drug screen came back positive for cocaine well as opiates Patient said he did not use cocaine but he did "touch it" Prescription for Cozaar 50 mg daily nicotine patches 21 mg daily Toprol XL 50 mg every 12 hours Xopenex inhaler as needed Patient counseled to stop using alcohol and drugs - Additional Information Resuscitation Status: Full Code Discharge Diet: Cardiac Discharge Activity: Activity As Tolerated Referrals: MARITA CLARK FNP [NO LOCAL MD] - 12/24/19 2:00 pm Prescriptions: Losartan Potassium [Cozaar 50 mg Tablet] 50 mg PO DAILY 30 Days #30 tablet Nicotine [Nicoderm 21 mg/24 Hr Transderm Patch] 1 each TD DAILY 30 Days #30 patch.td24 Metoprolol Succinate [Toprol Xl 50 mg Tab.sr] 50 mg PO Q12 30 Days #60 tab.sr.24h Levalbuterol Tartrate [Xopenex Hfa] 15 gm IH Q6HP PRN 15 Days #1 hfa.aer.ad PRN Reason: Home Medications: Furosemide [Lasix 20 mg Tablet] 40 mg PO DAILY #60 tablet 10/19/19 Rivaroxaban [Xarelto 10 mg Tablet] 20 mg PO DAILY 12/16/19 Acetaminophen [Tylenol 325 mg Tablet] 650 mg PO Q4HP PRN tablet 12/17/19 Docusate Sodium [Colace 100 mg Capsule] 100 mg PO BID capsule 12/17/19 Famotidine [Pepcid 20 mg Tablet] 20 mg PO Q12 tablet 12/17/19 Levalbuterol Tartrate [Xopenex Hfa] 15 gm IH Q6HP PRN 15 Days #1 hfa.aer.ad 12/17/19 Losartan Potassium [Cozaar 50 mg Tablet] 50 mg PO DAILY 30 Days #30 tablet 12/17/19 Magnesium Hydroxide [Milk of Magnesia 30 ml Udcup] 30 ml PO HSP PRN udc 12/17/19 Metoprolol Succinate [Toprol Xl 50 mg Tab.sr] 50 mg PO Q12 30 Days #60 tab.sr.24h 12/17/19 Nicotine [Nicoderm 21 mg/24 Hr Transderm Patch] 1 each TD DAILY 30 Days #30 patch.td24 12/17/19 History of Present Illiness History of Present Illness: EB ZAMUDIO is a 49 year old male Physical Exam Vital Signs: Temp Pulse Resp BP Pulse Ox 98.1 F 85 14 143/82 H 93 12/17/19 12:24 12/17/19 12:30 12/17/19 12:24 12/17/19 12:30 12/17/19 12:24 Intake & Output 12/16/19 12/17/19 12/18/19 06:59 06:59 06:59 Intake Total 1008 2219 116 Output Total 3735 Balance 1008 -1516 116 Weight 108.862 kg 105 kg Results Laboratory Results: WBC 7.2 10^3/uL (4.0-10.5) 12/17/19 04:25 RBC 4.76 10^6/uL (4.35-5.55) 12/17/19 04:25 Hgb 13.7 g/dL (13.5-17.0) 12/17/19 04:25 Hct 40.9 % (37.9-51.0) 12/17/19 04:25 MCV 86 fl (80-97) 12/17/19 04:25 MCH 28.8 pg (27.0-33.4) 12/17/19 04:25 MCHC 33.5 g/dL (32.0-36.0) 12/17/19 04:25 RDW 14.8 % (11.5-14.0) H 12/17/19 04:25 Plt Count 207 10^3/uL (150-450) 12/17/19 04:25 Lymph % (Auto) 26.5 % (13-45) 12/16/19 00:40 [place] % (Auto) 7.3 % (3-13) 12/16/19 00:40 Eos % (Auto) 0.8 % (0-6) 12/16/19 00:40 Baso % (Auto) 0.7 % (0-2) 12/16/19 00:40 Absolute Neuts (auto) 5.4 10^3/uL (1.7-8.2) 12/16/19 00:40 Absolute Lymphs (auto) 2.2 10^3/uL (0.5-4.7) 12/16/19 00:40 Absolute Monos (auto) 0.6 10^3/uL (0.1-1.4) 12/16/19 00:40 Absolute Eos (auto) 0.1 10^3/uL (0.0-0.6) 12/16/19 00:40 Absolute Basos (auto) 0.1 10^3/uL (0.0-0.2) 12/16/19 00:40 Seg Neutrophils % 64.7 % (42-78) 12/16/19 00:40 Sodium 139.8 mmol/L (137-145) 12/17/19 04:25 Potassium 4.7 mmol/L (3.6-5.0) 12/17/19 04:25 Chloride 103 mmol/L (98-107) 12/17/19 04:25 Carbon Dioxide 32 mmol/L (22-30) H 12/17/19 04:25 Anion Gap 5 (5-19) 12/17/19 04:25 BUN 11 mg/dL (7-20) 12/17/19 04:25 Creatinine 0.87 mg/dL (0.52-1.25) 12/17/19 04:25 Est GFR ( Amer) > 60 (>60) 12/17/19 04:25 Est GFR (MDRD) Non-Af > 60 (>60) 12/17/19 04:25 Glucose 107 mg/dL (75-110) 12/17/19 04:25 Calcium 9.2 mg/dL (8.4-10.2) 12/17/19 04:25 Magnesium 2.3 mg/dL (1.6-2.3) 12/17/19 04:25 Total Bilirubin 0.4 mg/dL (0.2-1.3) 12/16/19 00:40 Direct Bilirubin 0.1 mg/dL (0.0-0.4) 12/16/19 00:40 Neonat Total Bilirubin Not Reportable 12/16/19 00:40 Neonat Direct Bilirubin Not Reportable 12/16/19 00:40 Neonat Indirect Bili Not Reportable 12/16/19 00:40 AST 50 U/L (17-59) 12/16/19 00:40 ALT 43 U/L (<50) 12/16/19 00:40 Alkaline Phosphatase 83 U/L (38-126) 12/16/19 00:40 Creatine Kinase 182 U/L (55-170) H 12/16/19 18:20 CK-MB (CK-2) 1.41 ng/mL (<4.55) 12/16/19 18:20 Troponin I < 0.012 ng/mL 12/16/19 18:20 Total Protein 7.3 g/dL (6.3-8.2) 12/16/19 00:40 Albumin 4.0 g/dL (3.5-5.0) 12/16/19 00:40 Lipase 40.2 U/L (23-300) 12/16/19 00:40 TSH 2.07 uIU/mL (0.47-4.68) 12/16/19 00:40 Urine Color YELLOW 12/16/19 14:10 Urine Appearance CLEAR 12/16/19 14:10 Urine pH 5.0 (5.0-9.0) 12/16/19 14:10 Ur Specific [place] 1.016 12/16/19 14:10 Urine Protein NEGATIVE mg/dL (NEGATIVE) 12/16/19 14:10 Urine Glucose (UA) NEGATIVE mg/dL (NEGATIVE) 12/16/19 14:10 Urine Ketones NEGATIVE mg/dL (NEGATIVE) 12/16/19 14:10 Urine Blood NEGATIVE (NEGATIVE) 12/16/19 14:10 Urine Nitrite NEGATIVE (NEGATIVE) 12/16/19 14:10 Urine Bilirubin NEGATIVE (NEGATIVE) 12/16/19 14:10 Urine Urobilinogen NEGATIVE mg/dL (<2.0) 12/16/19 14:10 Ur Leukocyte Esterase NEGATIVE (NEGATIVE) 12/16/19 14:10 Urine WBC (Auto) 0 /HPF 12/16/19 14:10 Urine RBC (Auto) 1 /HPF 12/16/19 14:10 Urine Mucus (Auto) RARE /LPF 12/16/19 14:10 Urine Ascorbic Acid 20 (NEGATIVE) H 12/16/19 14:10 Urine Opiates Screen UNCONFIRMED POSITIVE 12/16/19 14:10 Urine Methadone Screen NEGATIVE 12/16/19 14:10 Ur Barbiturates Screen NEGATIVE 12/16/19 14:10 Ur Phencyclidine Scrn NEGATIVE 12/16/19 14:10 Ur Amphetamines Screen NEGATIVE 12/16/19 14:10 U Benzodiazepines Scrn NEGATIVE 12/16/19 14:10 Urine Cocaine Screen UNCONFIRMED POSITIVE 12/16/19 14:10 U Marijuana (THC) Screen NEGATIVE 12/16/19 14:10 Serum Alcohol < 10 mg/dL (NONE DETECTED) 12/16/19 00:40 12/16/19 12/16/19 12/16/19 00:40 03:28 08:26 CK-MB (CK-2) 1.66 1.97 Troponin I < 0.012 < 0.012 < 0.012 12/16/19 12/16/19 12:13 18:20 CK-MB (CK-2) 1.82 1.41 Troponin I < 0.012 < 0.012 Impressions: Chest X-Ray 12/16/19 01:02 IMPRESSION: No acute cardiopulmonary process copyright 2011 [employer]- All Rights Reserved Stroke Is this a Stroke Patient?: No Acute Heart Failure - Is this a Heart Failure Patient?: No
[2019-12-17] MEDS ORDERED: METOPROLOL SUCCINATE 50 MG TAB.SR.24H PO SCH (22:00)
== END 2019-12-17 13:05 | disposition home or self-care (01) ==
LOC: ER 00:33 → EH 06:02 → 3W 07:27
PROVIDERS: ADMIT Emergency Medicine; ATTEND Physician Assistant
DX: I48.91 Unspecified atrial fibrillation (principal); F14.10 Cocaine abuse, uncomplicated; F10.10 Alcohol abuse, uncomplicated; I10 Essential (primary) hypertension; F17.210 Nicotine dependence, cigarettes, uncomplicated; Z79.01 Long term (current) use of anticoagulants; Z79.899 Other long term (current) drug therapy; R11.2 Nausea with vomiting, unspecified; E66.9 Obesity, unspecified; E78.5 Hyperlipidemia, unspecified; R53.83 Other fatigue; Z68.39 Body mass index [BMI] 39.0-39.9, adult; Z82.49 Family history of ischemic heart disease and other diseases of the circulatory system; Z91.19 Patient's noncompliance with other medical treatment and regimen
CPT/HCPCS: 93005; 96376; 99285; 96372; 96361; 96375; 96365; 96366; 36415 ×2; 82553; 80307 ×2; 82550; 83690; 83735 ×2; 84443; 85025; 85027; 80048; 80053; 81001; 84484; 71045; 93010; 94640 ×3; J0360 ×2; J3490 ×6; J2550; J7030; G0378

== ENCOUNTER 2020-01-09 11:56 | Emergency (ER) | payer SELFPAY ==
[2020-01-09] MEDS ORDERED: IPRATROPIUM/ALBUTEROL 0.5-2.5 MG/3 ML AMPUL NEB ONE (12:13)
--- NOTE | 2020-01-09 12:21 | ER Document Report ---
ED General - General Chief Complaint: Shortness Of Breath Stated Complaint: SHORTNESS OF BREATH Time Seen by Provider: 01/09/20 11:59 Mode of Arrival: Ambulatory Information source: Patient Notes: 49-year-old male with history of CHF high blood pressure atrial fed presents emergency department with complaints of feeling shortness of breath this morning. Reports he was drinking and smoking last night. Woke up this morning felt little bit short of breath. Denies chest pain. Denies fever vomiting diarrhea. Reports he has been eating drinking voiding bowel movement is normal. Reports he did not have an inhaler. He was unable to refill the inhaler when he picked up the rest of his medications. Patient denies COVID-19 exposure. Reports he is not working at this time. No family members ill. TRAVEL OUTSIDE OF THE [place] IN LAST 30 DAYS: No - HPI Onset: This morning Onset/Duration: Sudden Quality of pain: No pain Associated symptoms: None Exacerbated by: Denies Relieved by: Denies Similar symptoms previously: Yes Recently seen / treated by doctor: No - Related Data Allergies/Adverse Reactions: No Known Allergies Allergy (Verified 01/09/20 12:00) Past Medical History - General Information source: Patient - Social History Smoking Status: Current Every Day Smoker Cigarette use (# per day): Yes Frequency of alcohol use: Occasional Drug Abuse: Cocaine Occupation: none Lives with: Family - son Family History: CAD, Hyperlipidemia, Hypertension Patient has suicidal ideation: No Patient has homicidal ideation: No - Past Medical History Cardiac Medical History: Reports: Hx Atrial Fibrillation, Hx Hypercholesterolemia, Hx Hypertension Denies: Hx Congestive Heart Failure, Hx Coronary Artery Disease, Hx Heart Attack, Hx Peripheral Vascular Disease Pulmonary Medical History: Denies: Hx Asthma, Hx COPD Neurological Medical History: Denies: Hx Seizures Endocrine Medical History: Denies: Hx Diabetes Mellitus Type 1, Hx Diabetes Mellitus Type 2, Hx Hyperthyroidism, Hx Hypothyroidism GI Medical History: Denies: Hx Cirrhosis, Hx Crohn's Disease, Hx Hepatitis, Hx Ulcerative Colitis Musculoskeletal Medical History: Denies Hx Arthritis, Denies Hx Gout Skin Medical History: Denies Hx Eczema, Denies Hx Psoriasis Infectious Medical History: Denies: Hx Hepatitis Past Surgical History: Reports: Hx Orthopedic Surgery - Right hand - Immunizations Immunizations up to date: Yes Hx Diphtheria, Pertussis, Tetanus Vaccination: Yes Review of Systems - Review of Systems Notes: Review HPI for review of systems., All other systems negative Physical Exam - Vital signs Vitals: Temp 97.9 F 01/09/20 12:01 - General General appearance: Appears well, Alert In distress: None - HEENT Head: Normocephalic, Atraumatic Eyes: Normal Extraocular movements intact: Yes Pupils: PERRL Nasal: Normal Mouth/Lips: Normal Mucous membranes: Moist Pharynx: Normal. No: Erythema, Exudate, Tonsillar hypertrophy Neck: Normal, Supple. No: Lymphadenopathy - Respiratory Respiratory status: No respiratory distress Chest status: Nontender Breath sounds: Normal Chest palpation: Normal - Cardiovascular Rhythm: Other - irregular- hx A. Fib Heart sounds: Normal auscultation Murmur: No - Abdominal Inspection: Normal Distension: No distension Bowel sounds: Normal Tenderness: Nontender Organomegaly: No organomegaly - Back Back: Normal, Nontender - Extremities General upper extremity: Normal ROM, Normal strength General lower extremity: Normal ROM, Normal strength, Normal weight bearing. No: Edema - Neurological Neuro grossly intact: Yes Cognition: Normal Orientation: AAOx4 Veteran Coma Scale Eye Opening: Spontaneous Nancy Coma Scale Verbal: Oriented Nancy Coma Scale Motor: Obeys Commands Veteran Coma Scale Total: 15 Speech: Normal Cranial nerves: Normal Motor strength normal: LUE, RUE, LLE, RLE Sensory: Normal - Psychological Associated symptoms: Normal affect, Normal mood - Skin Skin Temperature: Warm Skin Moisture: Dry Skin Color: Normal Course - Re-evaluation Re-evalutation: 01/09/20 12:19 49-year-old male with history of CHF atrial fibrillation hypertension presents with feelings of shortness of breath this morning. Denies chest pain. Patient reports he was unable to fill his inhaler the last time he refilled his medications. He is asking for an inhaler. Reports that makes him feel much better. Also asking for breathing treatment.. Patient denies COVID-19 exposure. He reports no family members ill and he has not been working. 01/09/20 14:08 Chest X-Ray 01/09/20 12:13 IMPRESSION: HEART ENLARGED WITHOUT FAILURE. NO OTHER SIGNIFICANT RADIOGRAPHIC FINDING IN THE CHEST. Laboratory 01/09/20 01/09/20 01/09/20 12:20 12:20 12:38 WBC 7.6 RBC 4.76 Hgb 13.8 Hct 40.8 MCV 86 MCH 29.0 MCHC 33.9 RDW 14.7 H Plt Count 205 Lymph % (Auto) 21.5 [place]olls % (Auto) 9.8 Eos % (Auto) 2.1 Baso % (Auto) 0.7 Absolute Neuts (auto) 5.0 Absolute Lymphs (auto) 1.6 Absolute Monos (auto) 0.7 Absolute Eos (auto) 0.2 Absolute Basos (auto) 0.1 Seg Neutrophils % 65.9 Sodium Potassium Chloride Carbon Dioxide Anion Gap BUN Creatinine Est GFR ( Amer) Est GFR (MDRD) Non-Af Glucose Calcium Total Bilirubin Direct Bilirubin Neonat Total Bilirubin Neonat Direct Bilirubin Neonat Indirect Bili AST ALT Alkaline Phosphatase Troponin I NT-Pro-B Natriuret Pep Total Protein Albumin Urine Color Urine Appearance Urine pH Ur Specific [place] Urine Protein Urine Glucose (UA) Urine Ketones Urine Blood Urine Nitrite Urine Bilirubin Urine Urobilinogen Ur Leukocyte Esterase Urine WBC (Auto) Urine RBC (Auto) U Hyaline Cast (Auto) Squamous Epi Cells Auto Urine Mucus (Auto) Urine Ascorbic Acid Influenza A (Rapid) NEGATIVE Influenza B (Rapid) NEGATIVE Group A Strep Rapid NEGATIVE 01/09/20 01/09/20 01/09/20 12:38 12:38 13:30 WBC RBC Hgb Hct MCV MCH MCHC RDW Plt Count Lymph % (Auto) [place] % (Auto) Eos % (Auto) Baso % (Auto) Absolute Neuts (auto) Absolute Lymphs (auto) Absolute Monos (auto) Absolute Eos (auto) Absolute Basos (auto) Seg Neutrophils % Sodium 136.6 L Potassium 4.2 Chloride 101 Carbon Dioxide 29 Anion Gap 7 BUN 15 Creatinine 0.88 Est GFR ( Amer) > 60 Est GFR (MDRD) Non-Af > 60 Glucose 110 Calcium 9.3 Total Bilirubin 0.8 Direct Bilirubin 0.0 Neonat Total Bilirubin Not Reportable Neonat Direct Bilirubin Not Reportable Neonat Indirect Bili Not Reportable AST 28 ALT 30 Alkaline Phosphatase 73 Troponin I < 0.012 NT-Pro-B Natriuret Pep 1670 H Total Protein 7.3 Albumin 4.1 Urine Color YELLOW Urine Appearance SLIGHTLY-CLOUDY Urine pH 6.0 Ur Specific [place] 1.017 Urine Protein NEGATIVE Urine Glucose (UA) NEGATIVE Urine Ketones NEGATIVE Urine Blood NEGATIVE Urine Nitrite NEGATIVE Urine Bilirubin NEGATIVE Urine Urobilinogen NEGATIVE Ur Leukocyte Esterase NEGATIVE Urine WBC (Auto) 1 Urine RBC (Auto) 5 U Hyaline Cast (Auto) 21 Squamous Epi Cells Auto <1 Urine Mucus (Auto) OCC Urine Ascorbic Acid 40 H Influenza A (Rapid) Influenza B (Rapid) Group A Strep Rapid 01/09/20 15:19 Labs unremarkable. BNP slightly elevated. Chest x-ray shows enlarged heart but no failure. Strep and influenza negative. Patient denies shortness of breath at this time ambulating without problems. Reports the neb treatment really helped and is asking again for the inhaler. Patient ambulated to the bathroom without SOB. Reports he feels good, ready to be discharged. Patient was instructed on the importance of follow-up with his primary care provider this week for recheck and return here for any concerns chest pain difficulty breathing or return of shortness of breath and he verbalized understanding to all instructions. - Vital Signs Vital signs: Temp Pulse Resp BP Pulse Ox 97.9 F 87 16 142/94 H 94 01/09/20 14:32 01/09/20 14:32 01/09/20 12:10 01/09/20 14:32 01/09/20 14:32 - Laboratory Result Diagrams: 01/09/20 12:38 01/09/20 12:38 Laboratory results interpreted by me: 01/09/20 01/09/20 01/09/20 12:38 12:38 12:38 RDW 14.7 H Sodium 136.6 L NT-Pro-B Natriuret Pep 1670 H Urine Ascorbic Acid 01/09/20 13:30 RDW Sodium NT-Pro-B Natriuret Pep Urine Ascorbic Acid 40 H - Diagnostic Test Radiology reviewed: Image reviewed, Reports reviewed - EKG Interpretation by Me Rhythm: A.Fib Additional EKG results interpreted by me: 01/09/20 14:[address] elevation, no t wave inversion, qtc 477 Discharge - Discharge Clinical Impression: Shortness of breath CHF (congestive heart failure) Qualifiers: Heart failure type: unspecified Heart failure chronicity: chronic Qualified Code(s): I50.9 - Heart failure, unspecified Condition: Stable Disposition: HOME, SELF-CARE Instructions: Congestive Heart Failure ([facility]), Inhaled Bronchodilators ([facility]) Additional Instructions: *You have been evaluated for shortness of breath, history of CHF *Use inhaler as prescribed *Quit smoking *Follow up with your primary care provider within one week *Return to the emergency department for chest pain difficulty breathing shortness of breath concerns Forms: Smoking Cessation Education
[2020-01-09] MEDS: ALBUTEROL SULFATE 0.083% NEB 2.5 MG/3 ML AMPUL NEB SCH (12:46)
[2020-01-09 12:52] LABS: A TYPE INFLUENZA AG NEGATIVE (NEGATIVE); B INFLUENZA AG NEGATIVE (NEGATIVE)
[2020-01-09 12:57] LABS: ABSOLUTE BASOPHILS # (AUTO) 0.1 10^3/uL (0.0-0.2); ABSOLUTE EOSINOPHILS # (AUTO) 0.2 10^3/uL (0.0-0.6); ABSOLUTE LYMPHOCYTES (AUTO) 1.6 10^3/uL (0.5-4.7); ABSOLUTE MONOCYTES (AUTO) 0.7 10^3/uL (0.1-1.4); BASOPHILS % (AUTO) 0.7 % (0-2); EOSINOPHILS % (AUTO) 2.1 % (0-6); HEMATOCRIT 40.8 % (37.9-51.0); HEMOGLOBIN 13.8 g/dL (13.5-17.0); LYMPHOCYTES % (AUTO) 21.5 % (13-45); MEAN CORPUSCULAR HGB CONC 33.9 g/dL (32.0-36.0); MEAN CORPUSCULAR VOLUME 86 fl (80-97); MONOCYTES % (AUTO) 9.8 % (3-13); PLATELET COUNT 205 10^3/uL (150-450); RED BLOOD COUNT 4.76 10^6/uL (4.35-5.55); RED CELL DISTRIBUTION WIDTH 14.7 % (11.5-14.0); SEGMENTED NEUTROPHILS % (AUTO) 65.9 % (42-78); TOTAL CELLS COUNTED % (AUTO) 100 %; WHITE BLOOD COUNT 7.6 10^3/uL (4.0-10.5)
[2020-01-09 13:15] LABS: ALBUMIN 4.1 g/dL (3.5-5.0); ALKALINE PHOSPHATASE 73 U/L (38-126); ANION GAP 7 (5-19); ASPARTATE AMINO TRANSFERASE 28 U/L (17-59); BILIRUBIN,TOTAL 0.8 mg/dL (0.2-1.3); BLOOD UREA NITROGEN 15 mg/dL (7-20); CALCIUM 9.3 mg/dL (8.4-10.2); CARBON DIOXIDE 29 mmol/L (22-30); CHLORIDE 101 mmol/L (98-107); GLUCOSE 110 mg/dL (75-110); POTASSIUM 4.2 mmol/L (3.6-5.0); TOTAL PROTEIN 7.3 g/dL (6.3-8.2)
--- NOTE | 2020-01-09 13:19 | RADIOLOGY REPORT (SQ) ---
EXAM DESCRIPTION: CHEST SINGLE VIEW IMAGES COMPLETED DATE/TIME: 01/09/2020 12:58 pm REASON FOR STUDY: sob COMPARISON: 12/16/2019. NUMBER OF VIEWS: One view. TECHNIQUE: Single frontal radiographic view of the chest acquired. LIMITATIONS: None. FINDINGS: LUNGS AND PLEURA: No opacities, masses or pneumothorax. No pleural effusion. MEDIASTINUM AND HILAR STRUCTURES: No masses. Contour normal. HEART AND VASCULAR STRUCTURES: Heart enlarged without failure. Normal vasculature. BONES: No acute findings. HARDWARE: None in the chest. OTHER: No other significant finding. IMPRESSION: HEART ENLARGED WITHOUT FAILURE. NO OTHER SIGNIFICANT RADIOGRAPHIC FINDING IN THE CHEST. TECHNICAL DOCUMENTATION: JOB ID: [id number] 2010 [employer]- All Rights Reserved Reading location - IP/workstation name: [email or web address]
[2020-01-09 13:27] LABS: NT PRO BNP 1670 pg/mL (<125); TROPONIN I < 0.012 ng/mL
[2020-01-09 13:55] LABS: APPEARANCE,URINE SLIGHTLY-CLOUDY; BILIRUBIN,URINE NEGATIVE (NEGATIVE); COLOR,URINE YELLOW; GLUCOSE, URINE NEGATIVE (NEGATIVE); KETONES,URINE NEGATIVE (NEGATIVE); LEUKOCYTE ESTERASE,URINE NEGATIVE (NEGATIVE); NITRITE,URINE NEGATIVE (NEGATIVE); PROTEIN,URINE NEGATIVE (NEGATIVE); URINE SPECIFIC GRAVITY 1.017; UROBILINOGEN,URINE NEGATIVE mg/dL (<2.0)
[2020-01-09] MEDS ORDERED: ALBUTEROL SULFATE HFA (90 MCG/PUFF) 8 GM MDI IH ONE (14:10)
[2020-01-09 14:37] VITALS: BP 142/94
== END 2020-01-09 14:37 | disposition home or self-care (01) ==
LOC: ER 11:56
DX: R06.02 Shortness of breath (principal); I50.9 Heart failure, unspecified; F17.210 Nicotine dependence, cigarettes, uncomplicated; I11.0 Hypertensive heart disease with heart failure; I48.91 Unspecified atrial fibrillation; E78.00 Pure hypercholesterolemia, unspecified
CPT/HCPCS: 94640 ×2; 99285; 36415; 87070; 87880; 85025; 87077; 80053; 81001; 84484; 87804; 83880; 71045; J7620; J3490

== ENCOUNTER 2020-01-16 23:47 | Emergency (ER) | payer SELFPAY ==
[2020-01-16] MEDS ORDERED: DILTIAZEM HCL INJ 25 MG/5 ML VIAL IV ONE (23:55)
--- NOTE | 2020-01-16 23:55 | ER Document Report ---
ED General - General Stated Complaint: SHORTNESS OF BREATH Time Seen by Provider: 01/16/20 23:52 Mode of Arrival: Ambulatory Information source: Patient TRAVEL OUTSIDE OF THE [place] IN LAST 30 DAYS: No - HPI Onset: Other - over the last several days Onset/Duration: Gradual Quality of pain: No pain Severity: Moderate Pain Level: Denies Associated symptoms: Nonproductive cough, Shortness of breath Exacerbated by: Other - Exertion Relieved by: Denies Similar symptoms previously: Yes - with CHF Recently seen / treated by doctor: No Notes: 49 year old male with a history of AFib, CHF, HTN, HLD who was recently admitted in Oct and November here in the ER for shorntess of breath, chest pains, palpitations, and swelling in his legs. The patient says he is taking his medications as prescribed but he cannot tell me what medications he is actually on. The patient denies fevers, chills, sweats, productive cough, known sick contacts. The patient says exertion makes his shortness of breath worse. - Related Data Allergies/Adverse Reactions: No Known Allergies Allergy (Verified 01/09/20 12:00) Past Medical History - General Information source: Patient - Social History Smoking Status: Current Every Day Smoker Frequency of alcohol use: Occasional Drug Abuse: Other - patient denies drug use but has been positive for cocaine in recent past Family History: CAD, Hyperlipidemia, Hypertension - Past Medical History Cardiac Medical History: Reports: Hx Atrial Fibrillation, Hx Congestive Heart Failure, Hx Hypercholesterolemia, Hx Hypertension Denies: Hx Coronary Artery Disease, Hx Heart Attack, Hx Peripheral Vascular Disease Pulmonary Medical History: Denies: Hx Asthma, Hx COPD Neurological Medical History: Denies: Hx Seizures Endocrine Medical History: Denies: Hx Diabetes Mellitus Type 1, Hx Diabetes Mellitus Type 2, Hx Hyperthyroidism, Hx Hypothyroidism GI Medical History: Denies: Hx Cirrhosis, Hx Crohn's Disease, Hx Hepatitis, Hx Ulcerative Colitis Musculoskeletal Medical History: Denies Hx Arthritis, Denies Hx Gout Skin Medical History: Denies Hx Eczema, Denies Hx Psoriasis Infectious Medical History: Denies: Hx Hepatitis Past Surgical History: Reports: Hx Orthopedic Surgery - Right hand - Immunizations Immunizations up to date: Yes Hx Diphtheria, Pertussis, Tetanus Vaccination: Yes Review of Systems - Review of Systems Constitutional: No symptoms reported EENT: No symptoms reported Cardiovascular: Chest pain, Palpitations, Heart racing Respiratory: Cough - dry, Short of breath Gastrointestinal: No symptoms reported Genitourinary: No symptoms reported Male Genitourinary: No symptoms reported Musculoskeletal: Leg swelling - bilateral Skin: No symptoms reported Hematologic/Lymphatic: No symptoms reported Neurological/Psychological: No symptoms reported -: Yes All other systems reviewed and negative Physical Exam - Vital signs Vitals: Pulse Ox 93 01/16/20 23:37 - Notes Notes: GENERAL: Well-appearing, well-nourished and in no acute distress. HEAD: Atraumatic, normocephalic. EYES: Pupils equal round and reactive to light, extraocular movements intact, sclera anicteric, conjunctiva are normal. ENT: External ears normal, nares patent, oropharynx clear without exudates. Moist mucous membranes. NECK: Normal range of motion, supple without lymphadenopathy or JVD. LUNGS: Breath sounds clear to auscultation bilaterally and equal. No wheezes rales or rhonchi. HEART: Tachycardic, irregular rhythm without murmurs, rubs or gallops. ABDOMEN: Soft, nontender, normoactive bowel sounds. No guarding, no rebound. No masses appreciated. EXTREMITIES: Normal range of motion, mild to moderate edema of legs, no clubbing or cyanosis. NEUROLOGICAL: Cranial nerves II through XII grossly intact. Normal speech, normal gait. PSYCH: Normal mood, normal affect. SKIN: Warm, Dry, normal turgor, no rashes or lesions noted. Course - Re-evaluation Re-evalutation: 01/17/20 00:50 The patient arrived to the ER in AFib with RVR and he looks volume overloaded on physical exam. Patient was given an initial dose of Diltiazem 10mg and this only minimally controlled his heart rate. Will redose Diltiazem now and and reassess. If hear rate is not controlled will start a Diltiazem drip and admit the patient. 01/17/20 01:52 The patient's rate was pretty well controlled with 2 doses of Diltiazem 10mg. Patient was given a dose of Metroprolol 5mg IV as well however. The patient is in acute on chronic heart failure. He diursed well with 40mg of IV Lasix. Carrie ent told to double up on his Lasix for the next 3 days and to not miss any doses of his previously prescribed medications (the patient sounds like he is noncompliant unfortunately). Patient feels comfortable going home and following up with his PCP and Underwriting Assistant. - Vital Signs Vital signs: Temp Pulse Resp BP Pulse Ox 99.7 F 160 H 29 H 152/121 H 94 01/16/20 23:47 01/16/20 23:50 01/17/20 01:02 01/17/20 01:02 01/17/20 01:02 - Laboratory Result Diagrams: 01/17/20 00:00 01/17/20 00:00 Laboratory results interpreted by me: 01/17/20 01/17/20 01/17/20 00:00 00:00 00:00 RDW 14.8 H Seg Neutrophils % 41.4 L Sodium 136.9 L NT-Pro-B Natriuret Pep 1810 H - Diagnostic Test Radiology reviewed: Image reviewed, Reports reviewed - EKG Interpretation by Me EKG shows normal: [place], QRS Complexes, ST-T Waves Rate: Tachycardia Rhythm: A.Fib Discharge - Discharge Clinical Impression: Atrial fibrillation with rapid ventricular response Heart failure Qualifiers: Heart failure type: unspecified Heart failure chronicity: acute on chronic Qualified Code(s): I50.9 - Heart failure, unspecified Condition: Stable Disposition: HOME, SELF-CARE Instructions: Atrial Fibrillation ([facility]), Congestive Heart Failure ([facility]) Additional Instructions: Take an extra dose of Lasix 40mg daily for the next 3 days. Take all other medications as previously prescribed. Follow up with your primary care doctor and with a Underwriting Assistant in the next several days. Return to an ER for trouble breathing, shortness of breath, chest pains or if worse. Quit smoking for good.
[2020-01-17] MEDS ORDERED: FUROSEMIDE INJ/PF 40 MG/4 ML SDV IV ONE (00:19)
[2020-01-17 00:27] LABS: ABSOLUTE BASOPHILS # (AUTO) 0.1 10^3/uL (0.0-0.2); ABSOLUTE EOSINOPHILS # (AUTO) 0.3 10^3/uL (0.0-0.6); ABSOLUTE LYMPHOCYTES (AUTO) 3.5 10^3/uL (0.5-4.7); ABSOLUTE MONOCYTES (AUTO) 0.7 10^3/uL (0.1-1.4); ABSOLUTE NEUT (AUTO) 3.3 10^3/uL (1.7-8.2); BASOPHILS % (AUTO) 1.1 % (0-2); EOSINOPHILS % (AUTO) 4.4 % (0-6); HEMATOCRIT 41.4 % (37.9-51.0); HEMOGLOBIN 13.9 g/dL (13.5-17.0); MEAN CORPUSCULAR HEMOGLOBIN 28.7 pg (27.0-33.4); MEAN CORPUSCULAR HGB CONC 33.7 g/dL (32.0-36.0); MEAN CORPUSCULAR VOLUME 85 fl (80-97); MONOCYTES % (AUTO) 9.1 % (3-13); PLATELET COUNT 187 10^3/uL (150-450); RED BLOOD COUNT 4.85 10^6/uL (4.35-5.55); RED CELL DISTRIBUTION WIDTH 14.8 % (11.5-14.0); SEGMENTED NEUTROPHILS % (AUTO) 41.4 % (42-78); TOTAL CELLS COUNTED % (AUTO) 100 %; WHITE BLOOD COUNT 7.9 10^3/uL (4.0-10.5)
[2020-01-17 00:45] LABS: ANION GAP 7 (5-19); BLOOD UREA NITROGEN 16 mg/dL (7-20); CALCIUM 9.1 mg/dL (8.4-10.2); CARBON DIOXIDE 26 mmol/L (22-30); CHLORIDE 104 mmol/L (98-107); GLUCOSE 100 mg/dL (75-110); POTASSIUM 4.3 mmol/L (3.6-5.0)
[2020-01-17] MEDS ORDERED: DILTIAZEM HCL INJ 25 MG/5 ML VIAL IV ONE (00:49)
--- NOTE | 2020-01-17 00:57 | RADIOLOGY REPORT (SQ) ---
EXAM DESCRIPTION: XR CHEST 1 VIEW COMPLETED DATE/TME: 01/16/2020 23:54 CLINICAL HISTORY: 49 years, Male, eval for SOB and chest pain COMPARISON: 01/09/2020 chest NUMBER OF VIEWS: 1 TECHNIQUE: Portable chest LIMITATIONS: None. FINDINGS: The heart is enlarged but stable. Mildly prominent interstitial changes with superimposed patchy infiltrates in the right upper lobe and right lung base. No pneumothorax IMPRESSION: Cardiomegaly. Mixed interstitial and airspace opacities may reflect mild edema and/or pneumonitis copyright 2011 [employer]- All Rights Reserved
[2020-01-17 01:05] LABS: NT PRO BNP 1810 pg/mL (<125)
[2020-01-17 01:24] LABS: TROPONIN I < 0.012 ng/mL
[2020-01-17] MEDS ORDERED: METOPROLOL TARTRATE PF/INJ 5 MG/5 ML SDV IV ONE (01:42)
[2020-01-17 02:44] VITALS: BP 145/100
== END 2020-01-17 03:00 | disposition home or self-care (01) ==
LOC: ER 23:47
DX: I48.91 Unspecified atrial fibrillation (principal); I50.9 Heart failure, unspecified; R06.02 Shortness of breath; R05 Cough; I11.0 Hypertensive heart disease with heart failure; E78.00 Pure hypercholesterolemia, unspecified; F17.200 Nicotine dependence, unspecified, uncomplicated
CPT/HCPCS: 96376; 99285; 96374; 96375; 36415; 83735; 85025; 80048; 84484; 83880; 71045; J1940; J3490 ×2

== ENCOUNTER 2020-04-01 18:37 | Emergency (ER) | payer SELFPAY ==
[2020-04-01] MEDS ORDERED: DILTIAZEM HCL INJ 25 MG/5 ML VIAL IV ONE (19:51)
--- NOTE | 2020-04-01 20:06 | ER Document Report ---
ED General - General Chief Complaint: Dizziness Stated Complaint: DIZZINESS Time Seen by Provider: 04/01/20 19:06 TRAVEL OUTSIDE OF THE [place] IN LAST 30 DAYS: No - HPI Notes: Patient is a 50-year-old male with a known history of atrial fibrillation as well as congestive heart failure who presents to the emergency department for evaluation of palpitations and elevated heart rate. The patient was pulled over today, then was brought to [facility] living. He did not have his metoprolol or Cardizem. He states otherwise has been taking his medications as prescribed. He was feeling some palpitations to be presents here for further evaluation. He also admits he gets "worked up" which makes his heart rate go up as well. He feels slightly short of breath, but states this is improved. Patient was discharged from the hospital on blood thinners, he states he has not been given any more prescriptions for these. He denies any chest pain or symptoms at this time. - Related Data Allergies/Adverse Reactions: No Known Allergies Allergy (Verified 01/09/20 12:00) Past Medical History - General Information source: Patient - Social History Smoking Status: Current Every Day Smoker Frequency of alcohol use: Rare Drug Abuse: None Family History: CAD, Hyperlipidemia, Hypertension - Past Medical History Cardiac Medical History: Reports: Hx Atrial Fibrillation, Hx Congestive Heart Failure, Hx Hypercholesterolemia, Hx Hypertension Denies: Hx Coronary Artery Disease, Hx Heart Attack, Hx Peripheral Vascular Disease Pulmonary Medical History: Denies: Hx Asthma, Hx COPD Neurological Medical History: Denies: Hx Seizures Endocrine Medical History: Denies: Hx Diabetes Mellitus Type 1, Hx Diabetes Mellitus Type 2, Hx Hyperthyroidism, Hx Hypothyroidism GI Medical History: Denies: Hx Cirrhosis, Hx Crohn's Disease, Hx Hepatitis, Hx Ulcerative Colitis Musculoskeletal Medical History: Denies Hx Arthritis, Denies Hx Gout Skin Medical History: Denies Hx Eczema, Denies Hx Psoriasis Infectious Medical History: Denies: Hx Hepatitis Past Surgical History: Reports: Hx Orthopedic Surgery - Right hand - Immunizations Immunizations up to date: Yes Hx Diphtheria, Pertussis, Tetanus Vaccination: Yes Review of Systems - Review of Systems Cardiovascular: See HPI -: Yes All other systems reviewed and negative Physical Exam - Vital signs Vitals: Temp 97.9 F 04/01/20 18:51 - Notes Notes: Vital signs reviewed, please refer to chart. Head is normocephalic, atraumatic. Pupils equal round, reactive to light. Neck is supple without meningismus. Heart is irregularly irregular. Lungs are clear to auscultation bilaterally. Abdomen is soft, nontender, normoactive bowel sounds throughout. Extremities without cyanosis, clubbing. Posterior calves are nontender. Peripheral pulses are equal. Skin is warm and dry. Patient is awake, alert, neurological exam is nonfocal. Course - Re-evaluation Re-evalutation: 04/01/20 20:09 Patient presents to the emergency department for evaluation. He said some palpitations. He is symptom-free at this time. He actually just states he would like to have something to eat. Patient has some basic blood work ordered, we will go ahead and give him a bolus of 10 mg of IV Cardizem given his heart rate. He is currently stable, we will continue to monitor. 04/01/20 22:55 Patient's laboratory investigations are unremarkable. After receiving the Cardizem, has heart rates were in the 70s. He is still not on any anticoagulants. I spoke with Dr. Ching. The patient does have a chads score of 2, should be anticoagulated. He states there is no harm in switching both be tween Xarelto and Eliquis, for which I do have some trial offer information. He states that he contact him for follow-up that he might be able to help him receive the medication through the company or by samples. I will send the patient home with a prescription for a short amount of Eliquis, the free 30-day trial offer information, and referral to Dr. Ching. He is to return to the emergency department worsening or new concerning symptoms of any sort. - Vital Signs Vital signs: Temp Pulse Resp BP Pulse Ox 97.9 F 04/01/20 18:51 - Laboratory Result Diagrams: 04/01/20 20:31 04/01/20 19:05 Laboratory results interpreted by me: 04/01/20 04/01/20 19:05 20:31 RDW 15.5 H Sodium 136.9 L Glucose 118 H - Diagnostic Test Radiology reviewed: Reports reviewed - EKG Interpretation by Me Additional EKG results interpreted by me: 04/01/20 22:32 Atrial fibrillation with a rate of 101 bpm. Normal axis and intervals. No acute ST changes concerning for ischemia or infarction. Discharge - Discharge Clinical Impression: Atrial fibrillation with rapid ventricular response Condition: Stable Disposition: HOME, SELF-CARE Instructions: Beta Blockers ([facility]), Atrial Fibrillation ([facility]) Additional Instructions: You need to be on a blood thinner to reduce your risk of stroke. Please take the trial off for folder for the Eliquis to the pharmacy for financial help with blood thinners. Then contact Dr. Ching for follow-up on Saturday, he may be able to help you obtain more affordable anticoagulant medications. Otherwise take your regular medications as prescribed. Return to the emergency department for worsening or new concerning symptoms of any sort.
[2020-04-01 20:23] LABS: BLOOD UREA NITROGEN 15 mg/dL (7-20); CALCIUM 9.1 mg/dL (8.4-10.2); CARBON DIOXIDE 27 mmol/L (22-30); CHLORIDE 103 mmol/L (98-107); GLUCOSE 118 mg/dL (75-110); POTASSIUM 4.3 mmol/L (3.6-5.0)
[2020-04-01 20:24] LABS: ALBUMIN 4.1 g/dL (3.5-5.0); ALKALINE PHOSPHATASE 71 U/L (38-126); ANION GAP 7 (5-19); ASPARTATE AMINO TRANSFERASE 33 U/L (17-59); BILIRUBIN,DIRECT 0.1 mg/dL (0.0-0.4); BILIRUBIN,TOTAL 0.6 mg/dL (0.2-1.3); TOTAL PROTEIN 7.8 g/dL (6.3-8.2)
[2020-04-01 20:52] LABS: ABSOLUTE BASOPHILS # (AUTO) 0.1 10^3/uL (0.0-0.2); ABSOLUTE EOSINOPHILS # (AUTO) 0.3 10^3/uL (0.0-0.6); ABSOLUTE LYMPHOCYTES (AUTO) 2.7 10^3/uL (0.5-4.7); ABSOLUTE MONOCYTES (AUTO) 0.5 10^3/uL (0.1-1.4); BASOPHILS % (AUTO) 0.9 % (0-2); EOSINOPHILS % (AUTO) 4.5 % (0-6); HEMATOCRIT 44.6 % (37.9-51.0); HEMOGLOBIN 15.2 g/dL (13.5-17.0); LYMPHOCYTES % (AUTO) 35.9 % (13-45); MEAN CORPUSCULAR HEMOGLOBIN 28.7 pg (27.0-33.4); MEAN CORPUSCULAR VOLUME 84 fl (80-97); MONOCYTES % (AUTO) 6.9 % (3-13); PLATELET COUNT 183 10^3/uL (150-450); RED BLOOD COUNT 5.28 10^6/uL (4.35-5.55); RED CELL DISTRIBUTION WIDTH 15.5 % (11.5-14.0); SEGMENTED NEUTROPHILS % (AUTO) 51.8 % (42-78); TOTAL CELLS COUNTED % (AUTO) 100 %; WHITE BLOOD COUNT 7.7 10^3/uL (4.0-10.5)
[2020-04-01] MEDS ORDERED: RIVAROXABAN 10 MG TABLET PO ONE (21:19)
[2020-04-01] MEDS ORDERED: APIXABAN 5 MG TABLET PO ONE (22:36)
[2020-04-02 00:23] VITALS: BP 114/56
--- NOTE | 2020-04-02 11:53 | EKG REPORT ---
SEVERITY:- ABNORMAL ECG - ATRIAL FIBRILLATION, V-RATE 61-127 : Confirmed by: Mark Ching MD 02-Apr-2020 11:52:46
== END 2020-04-02 00:23 | disposition home or self-care (01) ==
LOC: ER 18:37
DX: I48.91 Unspecified atrial fibrillation (principal); R42 Dizziness and giddiness; I50.9 Heart failure, unspecified; F17.200 Nicotine dependence, unspecified, uncomplicated; I11.0 Hypertensive heart disease with heart failure; E78.00 Pure hypercholesterolemia, unspecified
CPT/HCPCS: 93005; 99285; 96374; 36415; 85025; 80053; 93010; J3490

== ENCOUNTER 2020-05-26 09:09 | Emergency (ER) | payer SELFPAY ==
[2020-05-26 10:08] LABS: ABSOLUTE EOSINOPHILS # (AUTO) 0.4 10^3/uL (0.0-0.6); ABSOLUTE LYMPHOCYTES (AUTO) 2.5 10^3/uL (0.5-4.7); ABSOLUTE MONOCYTES (AUTO) 0.8 10^3/uL (0.1-1.4); BASOPHILS % (AUTO) 0.4 % (0-2); EOSINOPHILS % (AUTO) 5.7 % (0-6); HEMATOCRIT 47.3 % (37.9-51.0); HEMOGLOBIN 16.3 g/dL (13.5-17.0); LYMPHOCYTES % (AUTO) 37.7 % (13-45); MEAN CORPUSCULAR HEMOGLOBIN 28.7 pg (27.0-33.4); MEAN CORPUSCULAR HGB CONC 34.5 g/dL (32.0-36.0); MEAN CORPUSCULAR VOLUME 83 fl (80-97); MONOCYTES % (AUTO) 11.3 % (3-13); PLATELET COUNT 236 10^3/uL (150-450); RED BLOOD COUNT 5.69 10^6/uL (4.35-5.55); RED CELL DISTRIBUTION WIDTH 14.9 % (11.5-14.0); SEGMENTED NEUTROPHILS % (AUTO) 44.9 % (42-78); TOTAL CELLS COUNTED % (AUTO) 100 %; WHITE BLOOD COUNT 6.6 10^3/uL (4.0-10.5)
--- NOTE | 2020-05-26 10:15 | ER Document Report ---
ED General - General Chief Complaint: Chest Tightness Stated Complaint: BLURRED VISION,CHEST TIGHTNESS Time Seen by Provider: 05/26/20 09:25 Notes: 50-year-old male with CHF and A. fib on Eliquis beta-deep and calcium deep presents with "congestion" and blurry vision. He says he is out of his meds but then says he is taking them. I think they changed some doses recently but he is not exactly sure what. He does not know what meds he is on at all but takes them as he says he supposed to. No chest pain. He feels "congested" in his chest which seems like it is very much positional shortness of breath. He has no fever phlegm production leg swelling. He does continue to smoke and is using inhaler once before. Denies chest pain or pressure today denies increasing leg swelling denies belly pain. TRAVEL OUTSIDE OF THE [place] IN LAST 30 DAYS: No - Related Data Allergies/Adverse Reactions: No Known Allergies Allergy (Verified 01/09/20 12:00) Past Medical History - General Information source: Patient - Social History Smoking Status: Current Every Day Smoker Smoking Education Provided: Yes - Sm the patient ED visit today was directly related to their oking cessation Frequency of alcohol use: Occasional Drug Abuse: None Family History: CAD, Hyperlipidemia, Hypertension - Past Medical History Cardiac Medical History: Reports: Hx Atrial Fibrillation, Hx Congestive Heart Failure, Hx Hypercholesterolemia, Hx Hypertension Denies: Hx Coronary Artery Disease, Hx Heart Attack, Hx Peripheral Vascular Disease Pulmonary Medical History: Denies: Hx Asthma, Hx COPD Neurological Medical History: Denies: Hx Seizures Endocrine Medical History: Denies: Hx Diabetes Mellitus Type 1, Hx Diabetes Mellitus Type 2, Hx Hyperthyroidism, Hx Hypothyroidism GI Medical History: Denies: Hx Cirrhosis, Hx Crohn's Disease, Hx Hepatitis, Hx Ulcerative Colitis Musculoskeletal Medical History: Denies Hx Arthritis, Denies Hx Gout Skin Medical History: Denies Hx Eczema, Denies Hx Psoriasis Infectious Medical History: Denies: Hx Hepatitis Past Surgical History: Reports: Hx Orthopedic Surgery - Right hand - Immunizations Immunizations up to date: Yes Hx Diphtheria, Pertussis, Tetanus Vaccination: Yes Review of Systems - Review of Systems Notes: REVIEW OF SYSTEMS GEN: Denies fever, chills, weight loss ENT: Denies sore throat, nasal discharge, ear pain EYES: Denies blurry vision, eye pain, discharge CV: Denies chest pain, palpitations, edema RESP: shortness of breath GI: Denies abdominal pain, nausea, vomiting, diarrhea MSK: Denies joint pain/swelling, edema, SKIN: Denies rash, skin lesions LYMPH: Denies swollen glands/lymph nodes NEURO: Denies headache, focal weakness or numbness, dizziness PSYCH: Denies depression, suicidal or homicidal ideation PHYSICAL EXAMINATION General: No acute distress, well-nourished Head: Atraumatic, normocephalic ENT: Mouth normal, oropharynx moist, no exudates or tonsillar enlargement Eyes: Conjunctiva normal, pupils equal, lids normal Neck: No JVD, supple, no guarding CVS: Normal rate, regular rhythm, no murmurs Resp: No resp distress, equal and normal breath sounds bilaterally GI: Nondistended, soft, no tenderness to palpation, no rebound or guarding Ext: No deformities, no edema, normal range of motion in upper and lower ext Back: No CVA or midline TTP Skin: No rash, warm Lymphatic: No lymphadeopathy noted Neuro: Awake, alert. Face symmetric. GCS 15. Physical Exam - Vital signs Vitals: Temp Pulse Resp BP Pulse Ox 98.4 F 104 H 22 H 122/86 H 98 05/26/20 09:24 05/26/20 09:24 05/26/20 09:24 05/26/20 09:24 05/26/20 09:24 Course - Re-evaluation Re-evalutation: 05/26/20 10:14 Patient with CHF and A. fib presents with chest congestion and shortness of breath. Difficult historian but appears compliant with meds, A. fib appears rate controlled with no acute ischemia. Will check chest x-ray and labs for failure, elevated Trope etc. 05/26/20 15:33 Work-up was entirely negative heart rate stayed around 90 patient said comfortable at x-ray negative. No evidence of acute CHF decompensated A. fib or other acute coronary syndrome or other acute issue. Trope negative. Stable for discharge. I have discussed with the patient there likely diagnosis, aftercare plan, follow-up plans and my usual and customary return precautions. They verbalized understanding of this. - Vital Signs Vital signs: Temp Pulse Resp BP Pulse Ox 98.1 F 104 H 19 121/71 97 05/26/20 11:32 05/26/20 09:24 05/26/20 11:02 05/26/20 11:02 05/26/20 11:02 - Laboratory Result Diagrams: 05/26/20 09:39 05/26/20 09:39 Laboratory results interpreted by me: 05/26/20 05/26/20 05/26/20 09:39 09:39 09:39 RBC 5.69 H RDW 14.9 H Potassium 5.7 H NT-Pro-B Natriuret Pep 655 H - Diagnostic Test Radiology reviewed: Image reviewed, Reports reviewed - EKG Interpretation by Me Rate: Normal Rhythm: A.Fib - No ST or T wave changes compared to prior unchanged A. fib from prior. Discharge - Discharge Clinical Impression: Dizziness Condition: Good Disposition: HOME, SELF-CARE Instructions: Chest Pain of Unclear Cause ([facility]), Dizziness ([facility]) Additional Instructions: Your testing today revealed atrial fibrillation which is chronic and unchanged from your prior, without signs of heart attack heart failure or pneumonia Please continue all your normal medications and follow-up with your regular doctor and mobility developer within the next 5 days.
--- NOTE | 2020-05-26 10:22 | RADIOLOGY REPORT (SQ) ---
EXAM DESCRIPTION: CHEST SINGLE VIEW IMAGES COMPLETED DATE/TIME: 05/26/2020 10:03 am REASON FOR STUDY: chf copd COMPARISON: 01/17/2020 EXAM PARAMETERS: NUMBER OF VIEWS: One view. TECHNIQUE: Single frontal radiographic view of the chest acquired. RADIATION DOSE: NA LIMITATIONS: None. FINDINGS: LUNGS AND PLEURA: No opacities, masses or pneumothorax. No pleural effusion. MEDIASTINUM AND HILAR STRUCTURES: No masses. Contour normal. HEART AND VASCULAR STRUCTURES: Cardiomegaly. Normal vasculature. BONES: No acute findings. HARDWARE: None in the chest. OTHER: No other significant finding. IMPRESSION: NO ACUTE RADIOGRAPHIC FINDING IN THE CHEST. TECHNICAL DOCUMENTATION: JOB ID: [id number] 2010 [email or web address]- All Rights Reserved Reading location - IP/workstation name: [email or web address]
[2020-05-26 10:23] LABS: ANION GAP 9 (5-19); BLOOD UREA NITROGEN 19 mg/dL (7-20); CALCIUM 9.7 mg/dL (8.4-10.2); CARBON DIOXIDE 26 mmol/L (22-30); CHLORIDE 103 mmol/L (98-107); GLUCOSE 96 mg/dL (75-110); POTASSIUM 5.7 mmol/L (3.6-5.0)
[2020-05-26 10:35] LABS: NT PRO BNP 655 pg/mL (<125)
[2020-05-26 10:36] LABS: TROPONIN I < 0.012 ng/mL
[2020-05-26 11:34] VITALS: BP 121/71
--- NOTE | 2020-05-26 12:48 | EKG REPORT ---
SEVERITY:- ABNORMAL ECG - ATRIAL FIBRILLATION, V-RATE 61-160 NONSPECIFIC T ABNORMALITIES, INFERIOR LEADS : Confirmed by: Mark Ching MD 26-May-2020 12:47:16
== END 2020-05-26 11:32 | disposition home or self-care (01) ==
LOC: ER 09:09
DX: R42 Dizziness and giddiness (principal); R07.9 Chest pain, unspecified; H53.8 Other visual disturbances; R06.02 Shortness of breath; I11.0 Hypertensive heart disease with heart failure; I50.9 Heart failure, unspecified; I48.91 Unspecified atrial fibrillation; Z79.01 Long term (current) use of anticoagulants; Z79.899 Other long term (current) drug therapy; F17.200 Nicotine dependence, unspecified, uncomplicated
CPT/HCPCS: 36415; 71045; 80048; 83880; 84484; 85025; 93005; 93010; 99285

== ENCOUNTER 2020-08-10 08:41 | Emergency (ER) | payer SELFPAY ==
[2020-08-10 09:40] LABS: APPEARANCE,URINE CLEAR; BILIRUBIN,URINE NEGATIVE (NEGATIVE); COLOR,URINE COLORLESS; GLUCOSE, URINE NEGATIVE (NEGATIVE); KETONES,URINE NEGATIVE (NEGATIVE); LEUKOCYTE ESTERASE,URINE NEGATIVE (NEGATIVE); NITRITE,URINE NEGATIVE (NEGATIVE); PROTEIN,URINE NEGATIVE (NEGATIVE); URINE SPECIFIC GRAVITY 1.005; UROBILINOGEN,URINE NEGATIVE mg/dL (<2.0)
[2020-08-10 10:37] LABS: ABSOLUTE EOSINOPHILS # (AUTO) 0.3 10^3/uL (0.0-0.6); ABSOLUTE LYMPHOCYTES (AUTO) 2.2 10^3/uL (0.5-4.7); ABSOLUTE MONOCYTES (AUTO) 0.5 10^3/uL (0.1-1.4); ABSOLUTE NEUT (AUTO) 2.6 10^3/uL (1.7-8.2); BASOPHILS % (AUTO) 0.8 % (0-2); EOSINOPHILS % (AUTO) 4.8 % (0-6); HEMATOCRIT 44.2 % (37.9-51.0); HEMOGLOBIN 14.8 g/dL (13.5-17.0); LYMPHOCYTES % (AUTO) 39.2 % (13-45); MEAN CORPUSCULAR HEMOGLOBIN 28.6 pg (27.0-33.4); MEAN CORPUSCULAR HGB CONC 33.5 g/dL (32.0-36.0); MEAN CORPUSCULAR VOLUME 85 fl (80-97); MONOCYTES % (AUTO) 8.5 % (3-13); PLATELET COUNT 201 10^3/uL (150-450); RED BLOOD COUNT 5.17 10^6/uL (4.35-5.55); RED CELL DISTRIBUTION WIDTH 16.1 % (11.5-14.0); SEGMENTED NEUTROPHILS % (AUTO) 46.7 % (42-78); TOTAL CELLS COUNTED % (AUTO) 100 %; WHITE BLOOD COUNT 5.6 10^3/uL (4.0-10.5)
[2020-08-10 10:42] LABS: INTERNATIONAL RATION (INR) 0.93; PROTHROMBIN TIME 12.7 SEC (11.4-15.4)
[2020-08-10 10:56] LABS: ALBUMIN 4.3 g/dL (3.5-5.0); ALKALINE PHOSPHATASE 81 U/L (38-126); ANION GAP 9 (5-19); ASPARTATE AMINO TRANSFERASE 43 U/L (17-59); BILIRUBIN,DIRECT 0.1 mg/dL (0.0-0.4); BILIRUBIN,TOTAL 0.6 mg/dL (0.2-1.3); BLOOD UREA NITROGEN 18 mg/dL (7-20); CALCIUM 9.7 mg/dL (8.4-10.2); CARBON DIOXIDE 26 mmol/L (22-30); CHLORIDE 105 mmol/L (98-107); CREATINE KINASE 199 U/L (55-170); GLUCOSE 102 mg/dL (75-110); POTASSIUM 4.8 mmol/L (3.6-5.0); TOTAL PROTEIN 7.7 g/dL (6.3-8.2)
--- NOTE | 2020-08-10 11:03 | ER Document Report ---
ED General - General Chief Complaint: Chest Tightness Stated Complaint: CHEST TIGHTNESS, SHORTNESS OF BREATH Time Seen by Provider: 08/10/20 10:22 Primary Care Provider: [facility] [Provider Group] - Follow up in 1 week TRAVEL OUTSIDE OF THE [place] IN LAST 30 DAYS: No - HPI Notes: 50-year-old male with past medical history for atrial fibrillation, CHF, hypertension to the emergency department with complaints of cough x3 days with sensation of shortness of breath. He denies any fevers or chills. Denies any loss of taste or smell. He denies anybody close to him who has had coronavirus. He also states that he is running out of his medicine. He states that he takes several blood pressure medicines and Eliquis but he no longer has prescription for them. He states that he is typically going to [place] to get his medicine filled because he has [place] Medicaid. However he has not been able to have any follow-up here. He plans on staying in the area for at least another year. He took all of his medicine that he had this morning but he admits that he ran out of his Eliquis about 3 days ago. Denies any history of blood clots or recent travel. The patient was evaluated during the global COVID 19 pandemic, and that diagnosis was suspected/considered upon their initial presentation. Their evaluation, treatment, and testing was consistent with current guidelines for patients who present with complaints or symptoms that may be related to COVID- 19. - Related Data Allergies/Adverse Reactions: No Known Allergies Allergy (Verified 08/10/20 09:45) Past Medical History - General Information source: Patient - Social History Smoking Status: Current Every Day Smoker Frequency of alcohol use: Occasional Drug Abuse: None Family History: CAD, Hyperlipidemia, Hypertension Patient has homicidal ideation: No - Past Medical History Cardiac Medical History: Reports: Hx Atrial Fibrillation, Hx Congestive Heart Failure, Hx Hypercholesterolemia, Hx Hypertension Denies: Hx Coronary Artery Disease, Hx Heart Attack, Hx Peripheral Vascular Disease Pulmonary Medical History: Denies: Hx Asthma, Hx COPD Neurological Medical History: Denies: Hx Seizures Endocrine Medical History: Denies: Hx Diabetes Mellitus Type 1, Hx Diabetes Mellitus Type 2, Hx Hyperthyroidism, Hx Hypothyroidism GI Medical History: Denies: Hx Cirrhosis, Hx Crohn's Disease, Hx Hepatitis, Hx Ulcerative Colitis Musculoskeletal Medical History: Denies Hx Arthritis, Denies Hx Gout Skin Medical History: Denies Hx Eczema, Denies Hx Psoriasis Infectious Medical History: Denies: Hx Hepatitis Past Surgical History: Reports: Hx Orthopedic Surgery - Right hand - Immunizations Immunizations up to date: Yes Hx Diphtheria, Pertussis, Tetanus Vaccination: Yes Review of Systems - Review of Systems Constitutional: denies: Chills, Fever Cardiovascular: denies: Chest pain, Palpitations, Heart racing, Syncope, Dizziness, Lightheaded Respiratory: Cough, Short of breath. denies: Wheezing Gastrointestinal: denies: Abdominal pain, Diarrhea, Nausea, Vomiting Genitourinary: No symptoms reported Male Genitourinary: No symptoms reported Musculoskeletal: No symptoms reported Skin: No symptoms reported Hematologic/Lymphatic: No symptoms reported Neurological/Psychological: No symptoms reported -: Yes All other systems reviewed and negative Physical Exam - Vital signs Vitals: Temp Pulse Resp BP Pulse Ox 97.8 F 83 19 143/100 H 99 08/10/20 08:47 08/10/20 08:47 08/10/20 08:47 08/10/20 08:47 08/10/20 08:47 Interpretation: Normal Notes: PHYSICAL EXAMINATION: GENERAL: Well-appearing, well-nourished and in no acute distress. HEAD: Atraumatic, normocephalic. EYES: Pupils equal round and reactive to light, extraocular movements intact, sclera anicteric, conjunctiva are normal. ENT: nares patent, oropharynx clear without exudates. Moist mucous membranes. TMs are clear bilaterally. NECK: Normal range of motion, supple without lymphadenopathy LUNGS: Breath sounds clear to auscultation bilaterally and equal. No wheezes rales or rhonchi. No accessory muscle use. No tripoding. HEART: Regular rate and rhythm without murmurs; there is no pitting edema to bilateral legs ABDOMEN: Soft, nontender, normoactive bowel sounds. No guarding, no rebound. No masses appreciated. Noted obesity EXTREMITIES: Normal range of motion. No cyanosis. NEUROLOGICAL: No focal neurological deficits. Moves all extremities spontaneously and on command. PSYCH: Normal mood, normal affect. SKIN: Warm, Dry, normal turgor, no rashes or lesions noted. Course - Re-evaluation Re-evalutation: 08/10/20 Impression: Cough, shortness of breath, concern for possible COVID-19, medication refill. Patient has had pretty reassuring lab work today. Noted [place] which is about where he lives. X-ray is negative. He does not have rales on physical exam and he does not have any pitting edema. Is not hypoxic. His heart rate has been slightly tachycardic and I have given his normal dose of diltiazem as well as a dose of Eliquis. I involved our child welfare caseworker, Doug, and she was able to give the patient a coupon for Eliquis as well as a packet to fill out for follow-up for [facility]. Given that we are testing the patient for possible Covid 19 I have educated the patient on appropriate quarantining protocol. Patient was provided with discharge information including: As a person under investigation for COVID-19, [facility], division of public health advises you to adhere to the following guidance until your test results are reported to you. If your test result is positive, you will receive additional information from your provider and your local health department at that time. Remain at home until you are cleared by the healthcare provider public health authorities. Keep a log of visitors to your home and notify any visitors to your home of your isolation status. If you plan to move to a new address or leave the country, notify the local health department and your County. Call your doctor or seek care if you have an urgent medical need. Before seeking medical care, call ahead to get instructions from the provider before arriving at the medical office, clinic, or hospital. Notify them that you are being tested for the virus that causes COVID-19 so that arrangements can be made, as necessary, to prevent transmission to others in the healthcare setting. Next, notify the local health department and your County. If a medical emergency arises and you need to call 911, informed the first responders that you are being tested for the virus that causes COVID-19. Next, notified the local health department and your County. - Vital Signs Vital signs: Temp Pulse Resp BP Pulse Ox 97.8 F 83 24 H 155/107 H 97 08/10/20 09:18 08/10/20 08:47 08/10/20 15:01 08/10/20 15:01 08/10/20 14:02 - Laboratory Result Diagrams: 08/10/20 10:24 08/10/20 10:24 Laboratory results interpreted by me: 11/25/20 11/25/20 11/25/20 10:24 10:24 10:24 RDW 16.1 H Creatine Kinase 199 H NT-Pro-B Natriuret Pep 838 H - EKG Interpretation by Me Additional EKG results interpreted by me: 08/10/20 Rate: 101 Rhythm: Atrial fib Interpretation: No STEMI, atrial fibrillation, no ST changes. No significant changes from prior Discharge - Discharge Clinical Impression: Shortness of breath, Cough, Medication refill Condition: Stable Disposition: HOME, SELF-CARE Instructions: COVID-19 Guidance for Persons Under Investigation, Upper Respiratory Illness ([facility]) Additional Instructions: Follow-up with [facility] in order to get further medical care and appropriate outpatient follow-up for your regular medical problems. Today your lab work looked okay. You did not have any pneumonia on your chest x-ray. You have been tested for COVID-19. You will need to quarantine in your home until you have received the results and if you are positive you must quarantine further. Return if you have any worsening symptoms such as worsening shortness of breath. Get your medicines refilled. You were given a coupon card for Eliquis. You are also given a card for our child welfare caseworker, Doug and you are welcome to call her should she have any trouble with follow-up. Prescriptions: Diltiazem HCl [Cardizem 30 mg Tablet] 1 tab PO Q6H #120 tab Apixaban [Eliquis 5 mg Tablet] 5 mg PO BID #60 tablet Furosemide 40 mg PO DAILY #30 ml Metoprolol Tartrate [Lopressor 25 mg Tablet] 25 mg PO BID #60 tab Losartan Potassium 50 mg PO DAILY #30 tablet Potassium Chloride 10 meq PO DAILY #30 capsule.er Referrals: [facility] [Provider Group] - Follow up in 1 week
[2020-08-10 11:08] LABS: CREATINE KINASE MB 3.25 ng/mL (<4.55); TROPONIN I < 0.012 ng/mL
[2020-08-10] MEDS ORDERED: ALBUTEROL SULFATE 0.083% NEB 2.5 MG/3 ML AMPUL NEB ONE (11:19)
[2020-08-10] MEDS ORDERED: APIXABAN 5 MG TABLET PO ONE (11:19)
--- NOTE | 2020-08-10 11:53 | RADIOLOGY REPORT (SQ) ---
EXAM DESCRIPTION: CHEST SINGLE VIEW IMAGES COMPLETED DATE/TIME: 08/10/2020 11:37 am REASON FOR STUDY: cough COMPARISON: 05/26/2020 EXAM PARAMETERS: NUMBER OF VIEWS: One view. TECHNIQUE: Single frontal radiographic view of the chest acquired. RADIATION DOSE: NA LIMITATIONS: None. FINDINGS: LUNGS AND PLEURA: No focal consolidation, pleural effusion or pneumothorax. MEDIASTINUM AND HILAR STRUCTURES: No masses. Contour normal. HEART AND VASCULAR STRUCTURES: Heart normal in size. Normal vasculature. BONES: No acute findings. HARDWARE: None in the chest. OTHER: No other significant finding. IMPRESSION: No evidence of acute cardiopulmonary process. TECHNICAL DOCUMENTATION: JOB ID: [id number] 2010 [employer]- All Rights Reserved Reading location - IP/workstation name: [email or web address]
--- NOTE | 2020-08-10 12:37 | EKG REPORT ---
SEVERITY:- ABNORMAL ECG - ATRIAL FIBRILLATION, V-RATE 91-116 : Confirmed by: Nelson Leung MD 10-Aug-2020 12:37:26
[2020-08-10] MEDS ORDERED: DILTIAZEM HCL 30 MG TABLET PO ONE (14:15)
[2020-08-10 15:17] VITALS: BP 155/107
== END 2020-08-10 15:41 | disposition home or self-care (01) ==
LOC: ER 08:41
DX: Z76.0 Encounter for issue of repeat prescription (principal); R06.02 Shortness of breath; R05 Cough; R07.9 Chest pain, unspecified; I48.91 Unspecified atrial fibrillation; I11.0 Hypertensive heart disease with heart failure; I50.9 Heart failure, unspecified; Z20.828 Contact with and (suspected) exposure to other viral communicable diseases; F17.200 Nicotine dependence, unspecified, uncomplicated
CPT/HCPCS: 93005; 94640; 99285; 36415; 82553; 82550; 85025; 85610; 87635; 80053; 81001; 84484; 83880; 71045; 93010; J7613; C9803